=== PATIENT | female | born 1980 | race Caucasian/White ===

== ENCOUNTER → 2019-04-30 09:03 | Outpatient (BNVA) | payer MEDICARE, MEDICAID, SELFPAY | PROVIDERS: Family Provider Registered Nurse; PCP Registered Nurse; Visit Provider Social Worker | DX: F41.1 Generalized anxiety disorder (principal); F33.1 Major depressive disorder, recurrent, moderate; F43.12 Post-traumatic stress disorder, chronic | CPT/HCPCS: 90834 ==

== ENCOUNTER → 2019-05-17 09:32 | Outpatient (BNVA) | payer MEDICARE, MEDICAID, SELFPAY | PROVIDERS: Family Provider Registered Nurse; PCP Internal Medicine Rheumatology; Visit Provider Nurse Practitioner | DX: F41.1 Generalized anxiety disorder (principal); F33.1 Major depressive disorder, recurrent, moderate; G47.00 Insomnia, unspecified | CPT/HCPCS: 99213 ==

== ENCOUNTER → 2019-05-24 12:24 | Outpatient (BNVA) | payer MEDICARE, MEDICAID, SELFPAY | PROVIDERS: Family Provider Registered Nurse; PCP Registered Nurse; Referring Provider Registered Nurse; Visit Provider Internal Medicine Rheumatology | DX: M79.7 Fibromyalgia (principal); Z79.899 Other long term (current) drug therapy; F33.1 Major depressive disorder, recurrent, moderate; F41.1 Generalized anxiety disorder | CPT/HCPCS: 36415; 80076; 82306; 82565; 85025; 86900; 99214 ==

== ENCOUNTER → 2019-05-24 13:59 | Outpatient (BNVA) | payer MEDICARE, MEDICAID, SELFPAY | PROVIDERS: Family Provider Registered Nurse; PCP Registered Nurse; Referring Provider Registered Nurse; Visit Provider Internal Medicine Rheumatology | DX: Z79.899 Other long term (current) drug therapy (principal); M79.7 Fibromyalgia; F33.1 Major depressive disorder, recurrent, moderate; F41.1 Generalized anxiety disorder | CPT/HCPCS: 85025 ==

== ENCOUNTER → 2019-05-30 08:56 | Outpatient (BNVA) | payer MEDICARE, MEDICAID, SELFPAY | PROVIDERS: Family Provider Registered Nurse; PCP Registered Nurse; Visit Provider Social Worker | DX: F41.1 Generalized anxiety disorder (principal); F33.1 Major depressive disorder, recurrent, moderate; F43.12 Post-traumatic stress disorder, chronic | CPT/HCPCS: 90834 ==

== ENCOUNTER → 2019-06-27 09:07 | Outpatient (BNVA) | payer MEDICARE, MEDICAID, SELFPAY | PROVIDERS: Family Provider Registered Nurse; PCP Registered Nurse; Visit Provider Social Worker | DX: F41.1 Generalized anxiety disorder (principal); F33.1 Major depressive disorder, recurrent, moderate; F43.12 Post-traumatic stress disorder, chronic | CPT/HCPCS: 90834 ==

== ENCOUNTER → 2019-07-25 13:48 | Outpatient (BNVA) | payer MEDICARE, MEDICAID, SELFPAY | PROVIDERS: Family Provider Registered Nurse; PCP Registered Nurse; Visit Provider Social Worker | DX: F33.1 Major depressive disorder, recurrent, moderate (principal); F41.1 Generalized anxiety disorder; F43.12 Post-traumatic stress disorder, chronic | CPT/HCPCS: 90834 ==

== ENCOUNTER → 2019-08-15 07:48 | Outpatient (BNVA) | payer MEDICARE, MEDICAID, SELFPAY | PROVIDERS: Family Provider Registered Nurse; PCP Registered Nurse; Visit Provider Nurse Practitioner | DX: F41.1 Generalized anxiety disorder (principal); F33.1 Major depressive disorder, recurrent, moderate; G47.00 Insomnia, unspecified | CPT/HCPCS: 99213 ==

== ENCOUNTER → 2019-08-22 09:10 | Outpatient (BNVA) | payer MEDICARE, MEDICAID, SELFPAY | PROVIDERS: Family Provider Registered Nurse; Visit Provider Social Worker | DX: F33.1 Major depressive disorder, recurrent, moderate (principal); F41.1 Generalized anxiety disorder | CPT/HCPCS: 90834 ==

== ENCOUNTER → 2019-09-26 08:38 | Outpatient (BNVA) | payer MEDICARE, MEDICAID, SELFPAY | PROVIDERS: Family Provider Registered Nurse; Visit Provider Social Worker | DX: F41.1 Generalized anxiety disorder (principal); F33.1 Major depressive disorder, recurrent, moderate | CPT/HCPCS: 90832 ==

== ENCOUNTER → 2019-10-05 09:17 | Outpatient (BNVA) | payer MEDICARE, MEDICAID, SELFPAY | PROVIDERS: Family Provider Registered Nurse; Visit Provider Nurse Practitioner Family | DX: K59.00 Constipation, unspecified (principal); W57.XXXA Bitten or stung by nonvenomous insect and other nonvenomous arthropods, initial encounter; R19.5 Other fecal abnormalities; L03.116 Cellulitis of left lower limb | CPT/HCPCS: 82270; 86618; 86666; 86757 ==

== ENCOUNTER → 2019-10-08 09:11 | Outpatient (BNVA) | payer MEDICARE, MEDICAID, SELFPAY | PROVIDERS: Family Provider Registered Nurse; Visit Provider Registered Nurse | DX: N94.9 Unspecified condition associated with female genital organs and menstrual cycle (principal); B37.3 Candidiasis of vulva and vagina; W19.XXXA Unspecified fall, initial encounter | CPT/HCPCS: 81000 ==

== ENCOUNTER 2019-11-07 07:37 | Day surgery (SDC) | payer MEDICARE, MEDICAID, SELFPAY ==
[2019-11-05 12:48] VITALS: BMI 46.1
[2019-11-07 08:05] VITALS: BP 120/87; PULSE 54; RESP 18; TEMP 36.3; O2SAT 97
[2019-11-07 08:12] LABS: OR HCG Qualitative Urine Negative (Negative)
--- NOTE | 2019-11-07 08:23 | ANES.PREANE2 ---
Pre-Anesthetic Assessment Pre-Anesthetic Assessment: Height/Weight: Height 1.68 m Weight 129.727 kg Temp Pulse Resp BP Pulse Ox 97.4 F L 54 L 18 120/87 97 11/07/19 08:05 11/07/19 08:05 11/07/19 08:05 11/07/19 08:05 11/07/19 08:05 Preop Diagnosis: Chronic GERD and change in bowel habits Proposed Procedure: Operation Date: 11/07/19 09:15 Proposed Procedures s EGD/colon 94079 [id number] K21.9 R19.4(Not Applicable) - Db Bowser MD p Colonoscopy 07324 R19.4(Not Applicable) - Db Bowser MD Familial anesthetic complications: None Last intake: Intake Last Liquid Date 11/06/19 Last Liquid Time 21:00 Last Solid Date 11/05/19 Social: Social History: No alcohol and No tobacco Comment: second hand smoke from her apartment Exam: Pre-Anes Outpt Exam: alert, oriented x 3, clear to auscultation bilaterally and regular rate & rhythm Airway: Cervical ROM: WNL MP: 2 Dentition: Other (missing) : : None reported Hepatic: Hepatic: None reported GI: GI: GERD Metabolic: Metabolic: Morbid obesity and Thyroid Musc/skel: Musc/skel: Fibromyalgia Anesthetic Plan: ASA status: 2 Anesthesia: MAC Risk of > 500 ml blood loss (7ml/kg in children): No PFSH Anesthesia PFSH: Medical History (Updated 10/25/19 @ 11:45 by Db Bowser MD) Enrolled in chronic care management Fibromyalgia Generalized anxiety disorder GERD (gastroesophageal reflux disease) Major depressive disorder, recurrent, moderate Osteoarthritis 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 Raynauds disease Surgical History History of colonoscopy History of esophagogastroduodenoscopy (EGD) Family History Mother Arthritis Anemia CHF (congestive heart failure) Diabetes Grandmother CHF (congestive heart failure) ASCVD (arteriosclerotic cardiovascular disease) Diabetes Father CHF (congestive heart failure) Grandfather Diabetes Brother Diabetes Other Hypertension Lupus Rheumatoid arthritis Denies family history of Lupus anticoagulant inhibitor syndrome Anesthesia complication Bleeding disorder Social History Smoking and tobacco status: never smoked Second hand smoke exposure: Yes Data Anesthesia Other Labs: Laboratory Results - last 48 hr 11/07/19 08:11 Urine HCG, Qual Negative Cardiac Studies: No Data to Display
[2019-11-07] MEDS: sodium chloride 0.9% 1,000 ML 30 ML IV (08:45)
--- NOTE | 2019-11-07 09:12 | W.PM.OPSUD ---
Surgery/Procedure H&P Update DATE OF PROCEDURE: November 07, 2019 DATE H&P PERFORMED: 10/25/19 H&P UPDATE INFORMATION: I have reviewed H&P completed within last 30 days, I have examined patient prior to procedure and No changes to prior documentation PREOP DIAGNOSIS: Chronic GERD and change in bowel habits PRIMARY INDICATION FOR PROCEDURE: The same PLANNED PROCEDURE: Operation Date: 11/07/19 09:15 Proposed Procedures s EGD/colon 83489 48039 K21.9 R19.4(Not Applicable) - Db Bowser MD p Colonoscopy 76848 R19.4(Not Applicable) - Db Bowser MD
[2019-11-07 09:50] VITALS: BP 102/80; PULSE 58; RESP 18; TEMP 36.3; O2SAT 97
[2019-11-07 10:05] VITALS: BP 106/72; PULSE 57; RESP 18; O2SAT 95
[2019-11-08 05:52] LABS: H. Pylori / CLO Test Negative
== END 2019-11-07 10:23 | disposition home or self-care (01) ==
PROVIDERS: PCP Registered Nurse; Visit Provider Surgery
PROC: 0DJ08ZZ Inspection of Upper Intestinal Tract, Via Natural or Artificial Opening Endoscopic (ICD-10-PCS; CPT 43235; principal; 2019-11-07 09:15)
PROC: 0DJD8ZZ Inspection of Lower Intestinal Tract, Via Natural or Artificial Opening Endoscopic (ICD-10-PCS; CPT 45378; 2019-11-07 09:15)
DX: R19.4 Change in bowel habit (principal); K21.9 Gastro-esophageal reflux disease without esophagitis; K29.70 Gastritis, unspecified, without bleeding; E66.01 Morbid (severe) obesity due to excess calories; Z68.42 Body mass index [BMI] 45.0-49.9, adult; M79.7 Fibromyalgia; M19.90 Unspecified osteoarthritis, unspecified site
CPT/HCPCS: 12345; 43239; 45378; 81025; 84703; 87077; 88305; J2704; J7030

== ENCOUNTER → 2019-11-09 07:58 | Outpatient (BNVA) | payer MEDICARE, MEDICAID, SELFPAY | PROVIDERS: PCP Registered Nurse; Visit Provider Nurse Practitioner | DX: F41.1 Generalized anxiety disorder (principal); F33.1 Major depressive disorder, recurrent, moderate; G47.00 Insomnia, unspecified | CPT/HCPCS: 99213 ==

== ENCOUNTER 2019-11-14 17:03 | Outpatient (CLI) | payer MEDICARE, MEDICAID, SELFPAY ==
[2019-11-14 17:41] LABS: Amphetamines Screen Urine Negative (Negative); Barbiturates Screen Urine Negative (Negative); Benzodiazepines Screen Urine Positive (Negative); Cocaine Screen Urine Negative (Negative); Opiate Screen Urine Positive (Negative); PCP Screen Urine Negative (Negative); THC Screen Urine Negative (Negative)
== END 2019-11-14 17:04 | disposition home or self-care (01) ==
LOC: LAB 17:05
PROVIDERS: PCP Registered Nurse; Visit Provider Nurse Practitioner Family
DX: R82.90 Unspecified abnormal findings in urine; R82.5 Elevated urine levels of drugs, medicaments and biological substances; F41.1 Generalized anxiety disorder; F33.1 Major depressive disorder, recurrent, moderate; H81.13 Benign paroxysmal vertigo, bilateral
CPT/HCPCS: 80061; 80306; 83036

== ENCOUNTER → 2019-11-23 11:34 | Outpatient (BNVA) | payer MEDICARE, MEDICAID, SELFPAY ==
[2019-11-23 11:30] VITALS: BP 114/59; BMI 47.5
== END ==
PROVIDERS: PCP Registered Nurse; Visit Provider Registered Nurse
DX: H81.13 Benign paroxysmal vertigo, bilateral (principal)
CPT/HCPCS: 80053; 80307

== ENCOUNTER 2019-12-04 09:44 | Outpatient (RCR) | payer MEDICARE, MEDICAID, SELFPAY ==
[2019-11-23 11:30] VITALS: BP 114/59; BMI 47.5
== END 2019-12-17 23:59 | disposition home or self-care (01) ==
LOC: SPT 09:44
PROVIDERS: PCP Registered Nurse; Referring Provider Registered Nurse; Visit Provider Registered Nurse
DX: H81.13 Benign paroxysmal vertigo, bilateral (principal)
CPT/HCPCS: 97162

== ENCOUNTER 2019-12-04 09:46 | Outpatient (CLI) | payer MEDICARE, MEDICAID, SELFPAY ==
[2019-11-23 11:30] VITALS: BP 114/59; BMI 47.5
--- NOTE | 2019-12-04 13:30 | MM_ITS ---
WS: [id number] SCREENING DIGITAL MAMMOGRAM WITH CAD HISTORY: SCREEN FOR BREAST CANCER COMPARISON: None available. Bilateral CC and MLO views submitted. Computer aided detection analyzed. Breast composition: There are scattered areas of fibroglandular density. No suspicious masses, microc alcifications or architectural distortion. MM/[place] [id number] IMPRESSION: BI-RADS: 1-Negative FOLLOW UP: 1 Year Follow-up
== END 2019-12-04 09:47 | disposition home or self-care (01) ==
LOC: RADSHAW 09:49
PROVIDERS: PCP Registered Nurse; Visit Provider Surgery
DX: Z12.31 Encounter for screening mammogram for malignant neoplasm of breast (principal)
CPT/HCPCS: 77067

== ENCOUNTER → 2019-12-20 14:52 | Outpatient (BNVA) | payer OTHER, SELFPAY ==
[2019-11-23 11:30] VITALS: BP 114/59; BMI 47.5
== END ==
PROVIDERS: PCP Registered Nurse; Visit Provider Registered Nurse
DX: R10.84 Generalized abdominal pain (principal); E66.01 Morbid (severe) obesity due to excess calories; Z68.41 Body mass index [BMI] 40.0-44.9, adult
CPT/HCPCS: 81000

== ENCOUNTER → 2019-12-31 09:24 | Outpatient (BNVA) | payer MEDICARE, MEDICAID, SELFPAY ==
[2019-11-23 11:30] VITALS: BP 114/59; BMI 47.5
== END ==
PROVIDERS: PCP Registered Nurse; Visit Provider Registered Nurse
DX: E28.2 Polycystic ovarian syndrome (principal)
CPT/HCPCS: 83001; 84146; 84402; 84443

== ENCOUNTER → 2020-01-16 14:17 | Outpatient (BNVA) | payer MEDICARE, MEDICAID, SELFPAY ==
[2020-01-16 14:24] VITALS: BP 114/59; BMI 47.5
== END ==
PROVIDERS: PCP Registered Nurse; Visit Provider Nurse Practitioner Women's Health
DX: E28.2 Polycystic ovarian syndrome (principal); Z12.4 Encounter for screening for malignant neoplasm of cervix
CPT/HCPCS: 88175

== ENCOUNTER → 2020-01-23 14:27 | Outpatient (BNVA) | payer MEDICARE, MEDICAID, SELFPAY ==
[2020-01-18 15:02] VITALS: BP 114/59; BMI 47.5
== END ==
PROVIDERS: PCP Registered Nurse; Visit Provider Nurse Practitioner Women's Health
DX: E28.2 Polycystic ovarian syndrome (principal)
CPT/HCPCS: 76830

== ENCOUNTER → 2020-02-04 07:50 | Outpatient (BNVA) | payer MEDICARE, MEDICAID, SELFPAY ==
[2020-01-18 15:02] VITALS: BP 114/59; BMI 47.5
== END ==
PROVIDERS: PCP Registered Nurse; Visit Provider Nurse Practitioner
DX: F41.1 Generalized anxiety disorder (principal); F33.1 Major depressive disorder, recurrent, moderate
CPT/HCPCS: 99213

== ENCOUNTER → 2020-03-14 11:21 | Outpatient (BNVA) | payer OTHER, MEDICARE, MEDICAID, SELFPAY ==
[2020-03-07 12:25] VITALS: BP 114/59; BMI 47.5
== END ==
PROVIDERS: PCP Registered Nurse; Visit Provider Obstetrics & Gynecology
DX: Z01.812 Encounter for preprocedural laboratory examination (principal); Z20.828 Contact with and (suspected) exposure to other viral communicable diseases
CPT/HCPCS: 87635

== ENCOUNTER 2020-03-19 09:21 | Day surgery (SDC) | payer MEDICARE, MEDICAID, SELFPAY ==
[2020-03-07 12:25] VITALS: BP 114/59; BMI 47.5
[2020-03-17 10:24] VITALS: BMI 49.1
[2020-03-17 10:49] LABS: Add Urine Microscopic? NO
[2020-03-17 11:10] LABS: Basophils % 0.5 %; Eosinophils # 0.1 10^3/uL (0.0-0.8); Eosinophils % 1.3 %; Hematocrit 40.4 % (37.0-47.0); Hemoglobin 13.2 g/dL (11.5-15.3); Lymphocytes # 1.9 10^3/uL (0.8-4.8); Lymphocytes % 22.7 %; Mean Corpuscular HGB Conc 32.7 g/dL (30.0-36.0); Mean Corpuscular Hemoglobin 30.8 pg (28.0-34.0); Mean Corpuscular Volume 94.2 fL (81-99); Monocytes # 0.4 10^3/uL (0.2-0.9); Neutrophils # 5.77 10^3/uL (1.8-7.7); Neutrophils % 69.4 %; Nucleated Red Blood Cells % 0 %; Platelet Count 291 10^3/cmm (130-400); Red Blood Count 4.29 10^6/uL (4.1-5.3); Red Cell Distribution Width 13.7 % (12.1-15.1); White Blood Count 8.3 10^3/uL (4.0-10.0)
[2020-03-17 11:11] LABS: Alanine Aminotransferase 20 U/L (0-33); Albumin Level 4.2 g/dL (3.5-5.2); Alkaline Phosphatase 86 IU/L (35-105); Anion Gap 15.5 (5-19); Aspartate Amino Transferase 16 U/L (0-32); Blood Urea Nitrogen 11 mg/dL (6-20); Carbon Dioxide 29 mmol/L (22-29); Chloride 100 mmol/L (98-107); Globulin 2.8 g/dL (1.3-4.6); Glucose 105 mg/dL (65-115); Osmolality Calculated 290 mOsm/kg (285-295); Potassium 4.5 mmol/L (3.5-5.1); Sodium 140 mmol/L (136-145); Total Bilirubin 0.3 mg/dL (0.15-1.2)
[2020-03-17 11:24] LABS: Bilirubin Urine Neg (Negative); Blood Urine Neg (Negative); Glucose Urine UA Norm (Normal); Ketones Urine Negative (Negative); Leukocyte Esterase Urine Negative (Negative); Nitrate Urine Negative (Negative); Protein Urine Neg (Negative); Urine Appearance Clear (CLEAR); Urine Color Straw (Yellow); Urobilinogen Urine Norm (Negative); pH Urine 7 (5-7)
--- NOTE | 2020-03-17 12:18 | P.ANESASSM_ITS ---
Pre-Anesthetic Assessment Pre-Anesthetic Assessment: Height/Weight: Height 1.65 m Weight 133.81 kg Preop Diagnosis: Chronic pelvic pain Proposed Procedure: Operation Date: 03/19/20 11:10 Proposed Procedures p Laparoscopy Diagnostic 58587 R10.2(Not Applicable) - Dimas Calderon MD Was Beta Hector taken within 24 hours: N/A Social: Social History: No alcohol and No tobacco Exam: Pre-Anes Outpt Exam: alert, oriented x 3, clear to auscultation bilaterally and regular rate & rhythm Airway: Submandibular: WNL Cervical ROM: WNL MP: 2 Dentition: Full Pulmonary: Pulmonary: None reported CV/HEM: CV/HEM: None reported : : None reported Hepatic: Hepatic: None reported GI: GI: GERD Comments: IBS Metabolic: Metabolic: DM and Morbid obesity Musc/skel: Musc/skel: Fibromyalgia and Lower Back Pain Neuropsych: Neuropsych: Anxiety and Depression Anesthetic Plan: ASA status: 3 Risk of > 500 ml blood loss (7ml/kg in children): No PFSH Anesthesia PFSH: Medical History (Updated 03/17/20 @ 08:44 by Rosario Camacho RN) Enrolled in chronic care management Fibromyalgia Generalized anxiety disorder GERD (gastroesophageal reflux disease) Hypertension Hypothyroid IBS (irritable bowel syndrome) Major depressive disorder, recurrent, moderate Osteoarthritis 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 PCOS (polycystic ovarian syndrome) Raynauds disease Seasonal allergies Surgical History History of colonoscopy History of esophagogastroduodenoscopy (EGD) Family History Mother Diabetes Heart disease Uterine cancer, Onset Age: 60 Grandmother Diabetes Heart disease Father Heart disease Hypertension Grandfather Diabetes Maternal Heart disease Maternal Brother Diabetes Family/Other Stroke Maternal Great Grandmother Denies family history of Colon cancer Ovarian cancer Breast cancer Bleeding disorder Thyroid disease Social History Additional social history: - Tobacco use: Never Alcohol use: Never Drug use: Never Female Reproductive History: Date of last menstrual period: 11/05/19 Data Anesthesia CBC & Chem 7: 03/17/20 10:18 03/17/20 10:18 Other Labs: Laboratory Results - last 48 hr 03/17/20 03/17/20 03/17/20 10:15 10:18 10:18 WBC 8.3 RBC 4.29 Hgb 13.2 Hct 40.4 MCV 94.2 MCH 30.8 MCHC 32.7 RDW 13.7 Plt Count 291 MPV 10.0 Neut % (Auto) 69.4 Lymph % (Auto) 22.7 Casey % (Auto) 5.0 Eos % (Auto) 1.3 Baso % (Auto) 0.5 Neut # (Auto) 5.77 Lymph # (Auto) 1.9 Casey # (Auto) 0.4 Eos # (Auto) 0.1 Baso # (Auto) 0.0 Nucleated RBC % (auto) 0 Nucleated RBCs # 0.0 Sodium 140 Potassium 4.5 Chloride 100 Carbon Dioxide 29 Anion Gap 15.5 BUN 11 Creatinine 0.9 GFR Calculation 69.0 L Glucose 105 Calculated Osmolality 290 Calcium 9.0 Total Bilirubin 0.3 AST 16 ALT 20 Alkaline Phosphatase 86 Total Protein 7.0 Albumin 4.2 Globulin 2.8 Urine Color Straw Urine Appearance Clear Urine pH 7 Ur Specific Shirland 1.010 Urine Protein Neg Urine Glucose (UA) Norm Urine Ketones Negative Urine Blood Neg Urine Nitrate Negative Urine Bilirubin Neg Urine Urobilinogen Norm Ur Leukocyte Esterase Negative Blood Type Rho(D) Type Antibody Screen 03/17/20 10:18 WBC RBC Hgb Hct MCV MCH MCHC RDW Plt Count MPV Neut % (Auto) Lymph % (Auto) Casey % (Auto) Eos % (Auto) Baso % (Auto) Neut # (Auto) Lymph # (Auto) Casey # (Auto) Eos # (Auto) Baso # (Auto) Nucleated RBC % (auto) Nucleated RBCs # Sodium Potassium Chloride Carbon Dioxide Anion Gap BUN Creatinine GFR Calculation Glucose Calculated Osmolality Calcium Total Bilirubin AST ALT Alkaline Phosphatase Total Protein Albumin Globulin Urine Color Urine Appearance Urine pH Ur Specific Shirland Urine Protein Urine Glucose (UA) Urine Ketones Urine Blood Urine Nitrate Urine Bilirubin Urine Urobilinogen Ur Leukocyte Esterase Blood Type A Positive Rho(D) Type Positive Antibody Screen Negative Cardiac Studies: No Data to Display
[2020-03-19] VITALS (8 sets, daily range): BP systolic 98–132; BP diastolic 65–88; PULSE 71–102; RESP 16–19; TEMP 36.2–36.4; O2SAT 90–99
[2020-03-19 10:23] LABS: OR HCG Qualitative Urine Negative (Negative)
[2020-03-19] MEDS: sodium chloride 0.9% 1,000 ML 30 ML IV (10:31)
[2020-03-19] MEDS: scopolamine 1.5 Patch 1 PATCH TRANSDERMA (10:34)
[2020-03-19] MEDS: sodium chloride 0.9% 500 ML IV (11:05)
--- NOTE | 2020-03-19 11:35 | W.PM.OPSUD ---
Surgery/Procedure H&P Update DATE OF PROCEDURE: March 19, 2020 DATE H&P PERFORMED: 10/25/19 H&P UPDATE INFORMATION: I have reviewed H&P completed within last 30 days, I have examined patient prior to procedure and No changes to prior documentation PREOP DIAGNOSIS: Chronic pelvic pain PLANNED PROCEDURE: Operation Date: 03/19/20 10:55 Proposed Procedures p Laparoscopy Diagnostic 82268 R10.2(Not Applicable) - Dimas Calderon MD
--- NOTE | 2020-03-19 11:59 | SUR.OPER ---
NS 500ml bolus infused.
--- NOTE | 2020-03-19 12:46 | P.OP_ITS ---
Operative Report Date of procedure: March 19, 2020 Pre-op Diagnosis: Chronic pelvic pain Post-op diagnosis: same Procedure Done: Diagnostic laparoscopy. Right ovarian cyst aspiration/drained. Specimens removed/disposition: Right ovarian cyst fluid Surgeon: Dimas Calderon MD Anesthesia: General Estimated blood loss (mL): 5 Urine output (mL): 200 Condition: stable Disposition: PACU Brief History: 39-year-old female G0, P0 with history of chronic pelvic Procedure: DESCRIPTION OF PROCEDURE: After informed consent, the patient was taken to the operating room where general anesthesia was administered. The patient was examined under anesthesia and found to have a normal uterus with normal adnexa. She was placed in the dorsal lithotomy position and prepped and draped in sterile fashion. Pre- Procedure Time-Out verifying the correct patient identity, correct procedure verified with consent, correct site and side, correct patient position, availability of correct implants and any special equipment or requirements was performed and acknowledge by the OR team. A weighted speculum was placed in the vagina, and the anterior lip of cervix was grasped with the single toothed tenaculum. A uterine manipulator was advanced into the endocervical. Tenaculum was removed after uterine manipulator was secured. The speculum was removed from the vagina. An intraumbilical incision was made with a scalpel. While tenting up on the abdomen, a Verres needle with sleeve was admitted into the intra-abdominal cavity. A saline drop test was performed and noted to be within normal limits. Pneumoperitoneum was attained with 4 liters of carbon dioxide. The Verres needle was removed. A 5 mm trocar and sleeve were admitted into the abdomen and laparoscopic confirmation of location was achieved, A second incision was made 3 cm above the symphysis pubis, and a 5 mm trocar and sleeve were admitted into the abdomen under direct, laparoscopic visualization without complication. A survey revealed normal abdominal anatomy and pelvic survey shows normal uterus, left and right adnexa. A 5 mm blunt probe was advanced through the second trocar sleeve, and light manipulation of ovaries and uterus to assess the posterior aspects was performed. A simple 2-3 cm cyst in the right ovary noted and drained. The fluid was send to pathology. Carbon dioxide was allowed to escape from the abdomen. The instruments were removed, and skin cover with a bandage. The instruments were removed from the vagina, and excellent hemostasis was noted. The patient tolerated the procedure well, and sponge, lap and needle count were correct times two. The patient taken to the recovery room in good condition.
--- NOTE | 2020-03-19 13:02 | SUR.PHASEI ---
PT SLEEPS WITH GOOD RESP NOTED IV PATENT ABD SOFT , VSS
--- NOTE | 2020-03-19 13:13 | SUR.PHASEI ---
PT AWAKES EASILY FOLLOWS COMMANDS, PT ON RA TRIAL, SATS DOWN TO 87 PT ENCOURAGED TO COUGH AND DEEP BREATH, PT COUGHS STRONGLY AND NON PRODUCTIVE, VSS PT ON 3LNC SATS MAINTAINED AT 97% PT AWAKES EASILY TAKING FEW ICE CHIPS ABD LARGE SOFT WITH 2 SITES WITH XOFIN.
== END 2020-03-19 15:00 | disposition home or self-care (01) ==
PROVIDERS: Anesthesiology; PCP Registered Nurse; Visit Provider Obstetrics & Gynecology
PROC: (CPT 49320; principal; 2020-03-19 10:55)
DX: R10.2 Pelvic and perineal pain (principal); K21.9 Gastro-esophageal reflux disease without esophagitis; E11.9 Type 2 diabetes mellitus without complications; E66.01 Morbid (severe) obesity due to excess calories; Z68.42 Body mass index [BMI] 45.0-49.9, adult; M79.7 Fibromyalgia; F41.9 Anxiety disorder, unspecified; E03.9 Hypothyroidism, unspecified; I10 Essential (primary) hypertension; M19.90 Unspecified osteoarthritis, unspecified site; E28.2 Polycystic ovarian syndrome
CPT/HCPCS: 49322; 12345; 80053; 81003; 81025; 84703; 85025; 86850; 86900; 88112; 88305; J0690; J1100; J2405; J2704; J3010; J3490; J7030; J7040

== ENCOUNTER 2020-03-20 22:27 | Emergency (ER) | payer MEDICARE, MEDICAID, SELFPAY ==
[2020-03-07 12:25] VITALS: BP 114/59; BMI 47.5
[2020-03-20 22:30] VITALS: BP 101/79; PULSE 72; RESP 14; TEMP 36.9; O2SAT 96; BMI 48.2
--- NOTE | 2020-03-20 22:45 | XR_ITS ---
WS: [id number] KUB, 03/20/2020 Clinical Data: upper abdominal pain Comparison: None. Findings: No abnormal intraabdominal masses or calcifications are seen. There is no dilatated small bowel or ev idence of obstruction. There is a large amount of fecal material throughout the colon. There is a radiopaque clip to the rig ht of the L4 vertebral body which could be from surgery. XR/XR KUB portable [id number] Impression: Large amount of fecal material in the colon.
--- NOTE | 2020-03-20 22:45 | W.ED.ABDPA2 ---
HPI - Abdominal Pain General: Chief Complaint: Abdominal Pain Stated Complaint: abd pain Time Seen by Provider: 03/20/20 22:40 History of Present Illness: HPI narrative: Arrives via ambulance with complaint abdominal pain. Patient did not get her pain medicine picked up the pharmacy and she has been hurting since she had a laparoscopic done she thought maybe one of her incisions was popping open. She is no acute pain. Said bowels are working fine. Denies fever chills or other problems MD elicited complaint: abdominal pain Pertinent past history: other (Cyst reduction laparoscopic yesterday Dr. Calderon) Onset (ago): day(s) Pain Consistency: constant Location: LUQ and RUQ Severity: mild Quality: aching Radiation: none Migration to: no migration Exacerbating factors: nothing Relieving factors: nothing Context: recent surgery/procedure Associated Symptoms: Reports no associated symptoms; Denies chills, fever(s), nausea and vomiting Related Data: Date of Last Menstrual Period: 11/05/19 Review of Systems Const: Denies: fever(s), chills or body aches Eyes: Denies: change in vision or blurry vision ENMT: Denies: throat pain or nasal congestion Card: Denies: chest pain or dyspnea on exertion Resp: Denies: dyspnea, productive cough or non-productive cough GI: Reports: abdominal pain; Denies: nausea or vomiting Musc: Denies: extremity pain Skin/Breast: Denies: rash Neuro: Denies: headache(s) Psych: Denies: anxiety or depression Brenden/Lymph: Denies: easy bruising PFS ED PFSH: Medical History (Updated 03/20/20 @ 23:47 by MILLI Guzman) Enrolled in chronic care management Fibromyalgia Generalized anxiety disorder GERD (gastroesophageal reflux disease) Hypertension Hypothyroid IBS (irritable bowel syndrome) Major depressive disorder, recurrent, moderate Osteoarthritis Other long-term (current) drug therapy PCOS (polycystic ovarian syndrome) Raynauds disease Seasonal allergies Surgical History History of colonoscopy History of esophagogastroduodenoscopy (EGD) Family History Mother Diabetes Heart disease Uterine cancer, Onset Age: 60 Grandmother Diabetes Heart disease Father Heart disease Hypertension Grandfather Diabetes Maternal Heart disease Maternal Brother Diabetes Family/Other Stroke Maternal Great Grandmother Denies family history of Colon cancer Ovarian cancer Breast cancer Bleeding disorder Thyroid disease Social History Additional social history: - Tobacco use: Never Alcohol use: Never Drug use: Never Female Reproductive History: Date of last menstrual period: 11/05/19 Physical Exam Const: COMMON NORMALS: no acute distress, average body habitus and patient oriented x3 HENMT: COMMON NORMALS: normocephalic HEAD & SCALP: normal to inspection and normocephalic FACE & SINUS: normal facial exam Eye: COMMON NORMALS: conjunctivae normal GENERAL EYE: appearance normal, both eyes and all related structures CONJUNCTIVA: Yes conjunctivae normal Neck/C-Spine: COMMON NORMALS: no JVD Chest: COMMONS NORMALS: normal inspection of the chest Resp: COMMON NORMALS: normal respiratory effort and clear to auscultation bilaterally AUSCULTATION: clear to auscultation bilaterally Cardio: COMMON NORMALS: no JVD, regular rate and regular rhythm RATE: regular rate RHYTHM: regular rhythm GI: COMMON NORMALS: Normal to inspection, nondistended, normoactive bowel sounds present PALPATION: Yes Tenderness to palpation present (GI) Details: LUQ and RUQ Extremity: COMMON NORMALS: normal to inspection and full ROM Neuro: COMMON NORMALS: patient oriented x3 Course Vital Signs: Vital signs: Vital Signs Temperature 98.4 F 03/21/20 00:03 Pulse Rate 96 03/21/20 00:03 Respiratory Rate 18 03/21/20 00:03 Blood Pressure 124/74 03/21/20 00:03 Pulse Oximetry 96 03/21/20 00:03 MDM - Abdominal Pain MDM Narrative: Medical decision making narrative: Patient does not appear in any pain here. Patient does appear to have bowel gas consistent with air inflation that she had with the surgery yesterday. Labs are good patient encouraged to follow-up with Dr. Calderon and also take pain medicine she were prescribed Lab Data: Labs: Lab Results 03/20/20 03/20/20 Range/Units 22:40 22:40 WBC 9.5 (4.0-10.0) 10^3/ uL RBC 4.07 L (4.1-5.3) 10^6/u L Hgb 12.4 (11.5-15.3) g/dL Hct 36.4 L (37.0-47.0) % MCV 89.4 (81-99) fL MCH 30.5 (28.0-34.0) pg MCHC 34.1 (30.0-36.0) g/dL RDW 13.4 (12.1-15.1) % Plt Count 299 (130-400) 10^3/c mm MPV 10.1 (7.4-10.4) fL Neut % (Auto) 60.8 % Lymph % (Auto) 30.6 % Sunflower % (Auto) 6.5 % Eos % (Auto) 1.3 % Baso % (Auto) 0.4 % Neut # (Auto) 5.77 (1.8-7.7) 10^3/u L Lymph # (Auto) 2.9 (0.8-4.8) 10^3/u L Sunflower # (Auto) 0.6 (0.2-0.9) 10^3/u L Eos # (Auto) 0.1 (0.0-0.8) 10^3/u L Baso # (Auto) 0.0 (0.0-0.1) 10^3/u L Nucleated RBC % (a uto) 0 % Nucleated RBCs # 0.0 /100WBC Sodium 136 (136-145) mmol/L Potassium 3.8 (3.5-5.1) mmol/L Chloride 98 (98-107) mmol/L Carbon Dioxide 28 (22-29) mmol/L Anion Gap 13.8 (5-19) BUN 14 (6-20) mg/dL Creatinine 1.0 H (0.5-0.9) mg/dL GFR Calculation 61.1 L (90-130) mL/min Glucose 93 (65-115) mg/dL Calculated Osmolal ity 282 L (285-295) mOsm/k g Calcium 9.2 (8.5-10.5) mg/dL Total Bilirubin 0.4 (0.15-1.2) mg/dL AST 19 (0-32) U/L ALT 15 (0-33) U/L Alkaline Phosphata se 70 (35-105) IU/L Total Protein 6.8 (6.6-8.7) g/dL Albumin 4.1 (3.5-5.2) g/dL Globulin 2.7 (1.3-4.6) g/dL Lipase 35 (13-60) U/L Discharge Plan Discharge Patient Disposition: Home Clinical Impression: Abdominal pain Qualifiers: Abdominal location: generalized Qualified Code(s): R10.84 - Generalized abdominal pain Condition: Stable Prescriptions: New tramadol 50 mg tablet 50 mg PO TID PRN (Reason: pain) Qty: 10 RF: 0 No Action montelukast 10 mg tablet 10 mg PO DAILY RF: 0 levothyroxine 200 mcg capsule 200 mcg PO QDAY RF: 0 sumatriptan succinate 100 mg tablet 100 mg PO .COMPLEX Qty: 30 RF: 3 buspirone 15 mg tablet 15 mg PO TID Qty: 90 RF: 2 paroxetine HCl [Paxil] 20 mg tablet 20 mg PO .HS Qty: 30 RF: 2 trazodone 100 mg tablet 200 mg PO .at h.s Qty: 60 RF: 2 codeine sulfate 15 mg tablet 15 mg PO Q8H PRN (Reason: Pain) RF: 0 medroxyprogesterone 10 mg tablet 10 mg PO DAILY RF: 0 omeprazole 40 mg capsule,delayed release(DR/EC) 40 mg PO DAILY RF: 0 polyethylene glycol 3350 17 gram powder in packet 17 gm PO DAILY RF: 0 Hold Instructions: Doctor's Order spironolactone 25 mg tablet 50 mg PO DAILY RF: 0 baclofen 10 mg tablet 10 mg PO DAILY RF: 0 levocetirizine 5 mg tablet 5 mg PO DAILY RF: 0 Arnuity Ellipta 50 mcg/actuation blister with device 50 INHALATION RF: 0 hydrocortisone [Cortisone (hydrocortisone)] 1 % lotion 1 applic TOPICAL BID PRN (Reason: Rash) RF: 0 alprazolam 0.25 mg tablet 0.25 mg PO TID PRN (Reason: anxiety) Qty: 90 RF: 1 gabapentin 300 mg capsule See Rx Instructions .ROUTE .COMPLEX Qty: 90 RF: 0 hydroxyzine HCl 50 mg tablet 50 mg PO TID PRN (Reason: anxiety) Qty: 90 RF: 2 acetaminophen 325 mg capsule 325 mg PO Q4H PRN (Reason: fever or pain) Qty: 60 RF: 0 ibuprofen 800 mg tablet 800 mg PO TID PRN (Reason: pain) Qty: 60 RF: 0 Discharge Orders: Discharge ED (Routine); Ordered 03/20/20 Ordered By: Malcom Crook Referrals: Lili Gomes FNP [Primary Care Provider] - Discharge Diet: Advance as tolerated Discharge Activity: Resume usual activity Activity Restrictions/Additional Instructions: Follow-up Dr. Calderon as scheduled. Clear liquid diet next 24 hours. Try to move around much as possible. Take medicine as prescribed and pick medicine up at pharmacy and take that for your pain. Coding Level of Care Code ED Showcase Maker for Kianna Fwd Exam Comprehensive
[2020-03-20 23:07] VITALS: BP 147/45; PULSE 86; RESP 16; O2SAT 96
[2020-03-20 23:09] LABS: Basophils % 0.4 %; Eosinophils # 0.1 10^3/uL (0.0-0.8); Eosinophils % 1.3 %; Hematocrit 36.4 % (37.0-47.0); Hemoglobin 12.4 g/dL (11.5-15.3); Lymphocytes # 2.9 10^3/uL (0.8-4.8); Lymphocytes % 30.6 %; Mean Corpuscular HGB Conc 34.1 g/dL (30.0-36.0); Mean Corpuscular Hemoglobin 30.5 pg (28.0-34.0); Mean Corpuscular Volume 89.4 fL (81-99); Mean Platelet Volume 10.1 fL (7.4-10.4); Monocytes # 0.6 10^3/uL (0.2-0.9); Monocytes % 6.5 %; Neutrophils # 5.77 10^3/uL (1.8-7.7); Neutrophils % 60.8 %; Nucleated Red Blood Cells % 0 %; Platelet Count 299 10^3/cmm (130-400); Red Blood Count 4.07 10^6/uL (4.1-5.3); Red Cell Distribution Width 13.4 % (12.1-15.1); White Blood Count 9.5 10^3/uL (4.0-10.0)
[2020-03-20] MEDS: HYDROcodone-acetaminophen 7.5-325 mg Tablet 1 TAB PO (23:10)
[2020-03-20 23:24] LABS: Alanine Aminotransferase 15 U/L (0-33); Albumin Level 4.1 g/dL (3.5-5.2); Alkaline Phosphatase 70 IU/L (35-105); Anion Gap 13.8 (5-19); Aspartate Amino Transferase 19 U/L (0-32); Blood Urea Nitrogen 14 mg/dL (6-20); Calcium 9.2 mg/dL (8.5-10.5); Carbon Dioxide 28 mmol/L (22-29); Chloride 98 mmol/L (98-107); Globulin 2.7 g/dL (1.3-4.6); Glomerular Filtration Rate 61.1 mL/min (90-130); Glucose 93 mg/dL (65-115); Lipase 35 U/L (13-60); Osmolality Calculated 282 mOsm/kg (285-295); Potassium 3.8 mmol/L (3.5-5.1); Sodium 136 mmol/L (136-145); Total Bilirubin 0.4 mg/dL (0.15-1.2); Total Protein 6.8 g/dL (6.6-8.7)
[2020-03-21 00:03] VITALS: BP 124/74; PULSE 96; RESP 18; TEMP 36.9; O2SAT 96
== END 2020-03-20 23:58 | disposition home or self-care (01) ==
PROVIDERS: Emergency Provider Nurse Practitioner Family; PCP Registered Nurse
DX: R10.84 Generalized abdominal pain (principal); I10 Essential (primary) hypertension
CPT/HCPCS: 12345; 74018; 80053; 83690; 85025; 99283

== ENCOUNTER → 2020-03-28 08:54 | Outpatient (BNVA) | payer MEDICARE, MEDICAID, SELFPAY ==
[2020-03-07 12:25] VITALS: BP 114/59; BMI 47.5
== END ==
PROVIDERS: PCP Registered Nurse; Visit Provider Nurse Practitioner
DX: F41.1 Generalized anxiety disorder (principal); F33.1 Major depressive disorder, recurrent, moderate; G47.00 Insomnia, unspecified
CPT/HCPCS: 99213

== ENCOUNTER 2020-05-08 08:52 | Outpatient (CLI) | payer MEDICARE, MEDICAID, SELFPAY ==
[2020-04-14 16:27] VITALS: BP 114/59; BMI 47.5
--- NOTE | 2020-05-08 08:45 | US_ITS ---
WS: [id number] RIGHT UPPER QUADRANT ULTRASOUND HISTORY: K82.9 - Disease of gallbladder, unspecified COMPARISON: None available. Liver: 16.8 cm in length. Liver is mildly enlarged. Moderate low-attenuation attenuation throughout t he liver. No mass or bile duct dilatation. Gallbladder: Normally distended gallbladder with no stones or wall thickening. CBD: 0.4 cm Pancreas: Poorly visualized. Due to body habitus. Right kidney: 11.5 cm in length. Normal size and echogenicity. No hydronephrosis or mass. Aorta and IVC: Unremarkable abdominal aorta and IVC. No ascites. US/US abdomen limited [id number] IMPRESSION: 1. Normal gallbladder. 2. Mild hepatomegaly with changes of hepatic steatosis.
== END 2020-05-08 08:53 | disposition home or self-care (01) ==
LOC: RAD 08:59
PROVIDERS: PCP Registered Nurse; Visit Provider Obstetrics & Gynecology
DX: K82.9 Disease of gallbladder, unspecified (principal); R16.0 Hepatomegaly, not elsewhere classified; K76.0 Fatty (change of) liver, not elsewhere classified
CPT/HCPCS: 76705

== ENCOUNTER 2020-08-01 12:47 | Outpatient (CLI) | payer MEDICARE, MEDICAID, SELFPAY ==
[2020-04-14 16:27] VITALS: BP 114/59; BMI 47.5
--- NOTE | 2020-08-01 | CT_ITS ---
WS: [id number] CT scan of the abdomen and pelvis with Oral and IV contrast. Additional two-dimensional coronal and s agittal reconstruction was performed. 08/01/2020 Clinical Data: GENERALIZED ABD PAIN Comparison: None. DLP: 1384.[address] scans at [facility] use at least one of these dose optimization techniques: automat ed exposure control; mA and/or kV adjustment per patient size (includes targeted exams where dose is matched to clinical indication); or iterative reconstruction. Findings: The lower lungs show no nodules, masses or effusions. There is a moderate hiatal hernia. The liver, gallbladder, spleen, adrenal glands and pancreas are normal. The kidneys show equal bilateral contrast excretion with no cyst or masses. No hydronephrosis or kailyn l calculi are seen. The abdominal aorta is normal in size. No appendicitis or diverticulitis is seen. Oral contrast is in the stomach and small bowel and there is no bowel dilatation. No abscess, adenopathy, ascites, obstruction or free air is seen The bladder is unremarkable. No inguinal hernia is seen. There is a left adnexal mass measuring 5.5 c m with solid density. This could represent an ovarian mass or a soft tissue mass of unknown origin. The bones of the lower thorax, lumbar spine, pelvis, and hips show mild osteoarthritis of the lower t horacic and all lumbar vertebral bodies.. CT/CT abdomen pelvis w con* [id number] Impression: 1. Left adnexal mass, 5.5 cm, possibly of ovarian origin. 2. Recommend pelvic ultrasound.
[2020-08-01] MEDS: iohexol 300 mg/mL 50 mL Btl PO (13:50)
[2020-08-01] MEDS: iohexol 300 mg/mL 100 mL Btl IV (13:51)
== END 2020-08-01 12:48 | disposition home or self-care (01) ==
PROVIDERS: PCP Registered Nurse; Visit Provider Internal Medicine
DX: R10.9 Unspecified abdominal pain (principal)
CPT/HCPCS: 74177; Q9967

== ENCOUNTER 2020-09-24 06:37 | Outpatient (CLI) | payer MEDICARE, MEDICAID, SELFPAY ==
[2020-04-14 16:27] VITALS: BP 114/59; BMI 47.5
--- NOTE | 2020-09-24 07:15 | US_ITS ---
WS: [id number] TRANSABDOMINAL PELVIC AND TRANSVAGINAL PELVIC ULTRASOUND HISTORY: N94.89 - Other specified conditions associated with female organs. COMPARISON: CT 08/01/2020 Uterus: 8.0 cm x 5.7 cm x 4.2 cm. Anteverted uterus. Normal size with mild heterogeneity in the myome trium. No discrete fibroid is identified. Endometrium: 0.3 cm. Normal. Right ovary: 4.0 cm x 3.3 cm x 2.2 cm. Normal size ovary and normal vascularity. Dominant follicle me asures 2.1 x 1.4 x 1.7 cm. Left ovary: Not identified. Within the LEFT adnexa there is a large amount of shadowing. This corresponds to the mass seen on the prior CT. There is a poorly visualized mass with a large amount shadowing. Margins cannot be well vi sualized. Suspect this is probably ovarian in etiology. Mass was better seen on the CT. US/US pelvic with transvaginal IMPRESSION: 1. Solid mass in the LEFT adnexa seen on the prior CT of 08/01/2020 is not as w ell visualized by ultrasound due to body habitus. There is also a large amount shadowing from this mass. Recommend surgical consultation. Ovarian neoplasm nee ds to be considered. This could also be a dermoid. 2. Quality of examination is limited by body habitus. 3. Normal endometrium.
== END 2020-09-24 06:38 | disposition home or self-care (01) ==
PROVIDERS: PCP Registered Nurse; Visit Provider Registered Nurse
DX: N94.89 Other specified conditions associated with female genital organs and menstrual cycle (principal)
CPT/HCPCS: 76830; 76856

== ENCOUNTER → 2020-09-29 11:30 | Outpatient (BNVA) | payer MEDICARE, MEDICAID, SELFPAY ==
[2020-04-14 16:27] VITALS: BP 114/59; BMI 47.5
== END ==
PROVIDERS: PCP Registered Nurse; Visit Provider Nurse Practitioner
DX: F41.1 Generalized anxiety disorder (principal); F33.1 Major depressive disorder, recurrent, moderate; G47.00 Insomnia, unspecified
CPT/HCPCS: 99214

== ENCOUNTER 2020-10-31 08:07 | Outpatient (CLI) | payer MEDICARE, MEDICAID, SELFPAY ==
[2020-04-14 16:27] VITALS: BP 114/59; BMI 47.5
--- NOTE | 2020-10-31 08:00 | MR_ITS ---
WS: [id number] MRI PELVIS with and without CONTRAST. COMPARISON: 09/24/2020 and 08/01/2020 Multiplanar, multisequence imaging is performed with and without contrast. Mildly lobulated anterior uterus. No fibroid is identified. The endometrium is centered. No enhancing masses are identified. Uterus is very slightly deviated to the LEFT of midline. Small RIGHT ovary wi th a small follicle. Crenulated wall is probably a collapsing corpus luteum in the RIGHT ovary with a maximum diameter 1.9 cm. In the far lateral and high LEFT adnexa is a cystic mass with peripheral en hancement. No solid component. This corresponds to the mass seen on prior CT. Mass measures 2.4 x 2.5 cm with significant decrease in size since the prior study. No additional adnexal mass. There is no free fluid in the cul-de-sac. No adenopathy identified. MR/MR pelvis wo/w con [id number] IMPRESSION: 1. Mildly complex cyst in the LEFT adnexa. This corresponds to the mass seen o n the prior CT of 08/01/2020. Mildly complex cyst has significantly decreased in size now measuring 2.4 x 2.5 cm. No solid mass. 2. Midline uterus. 3. Negative RIGHT ovary.
[2020-10-31] MEDS: gadobenate dimeglumine 20 mL vial IV (09:35)
== END 2020-10-31 08:08 | disposition home or self-care (01) ==
LOC: RADSHAW 08:14
PROVIDERS: PCP Registered Nurse; Visit Provider Obstetrics & Gynecology
DX: N83.8 Other noninflammatory disorders of ovary, fallopian tube and broad ligament (principal)
CPT/HCPCS: 72197; A9577

== ENCOUNTER 2020-12-18 08:51 | Outpatient (CLI) | payer MEDICARE, MEDICAID, SELFPAY ==
[2020-11-25 10:20] VITALS: BP 114/59; BMI 47.5
--- NOTE | 2020-12-18 10:00 | NM_ITS ---
WS: [id number] NUCLEAR MEDICINE HIDA SCAN WITH GALLBLADDER EJECTION FRACTION HISTORY: R10.84 - Generalized abdominal pain COMPARISON: None available. TECHNIQUE: The patient was intravenously injected with 7.3 mCi of TC99m Mebrofenin. Immediate imaging over the right upper quadrant was followed by 5 minute image and additional images for a total of 60 minutes. Normal uptake of radiotracer throughout the liver. Activity identified in the gallbladder at 15 minutes and well distended by 60 minutes. Activity in the proximal small bowel was seen by 20 minutes. Good washout of the radiotracer from the liver by 60 minutes. The patient then drank 8 ounces of Ensure Plus. Ejection fraction at 60 minutes was 72%. Normal GB ej ection fraction is 35-75%. Post fatty meal symptoms: None. NM/NM hepatobiliary w phar* [id number] IMPRESSION: 1. Normal HIDA scan. 2. Normal gallbladder ejection fraction.
== END 2020-12-18 08:52 | disposition home or self-care (01) ==
LOC: NM 08:57
PROVIDERS: PCP Registered Nurse; Visit Provider Surgery
DX: R10.84 Generalized abdominal pain (principal)
CPT/HCPCS: 78227; A9537

== ENCOUNTER → 2021-02-09 07:58 | Outpatient (BNVA) | payer MEDICARE, MEDICAID, SELFPAY ==
[2020-12-29 14:35] VITALS: BP 114/59; BMI 47.5
== END ==
PROVIDERS: PCP Registered Nurse; Visit Provider Nurse Practitioner
DX: F41.1 Generalized anxiety disorder (principal); F33.1 Major depressive disorder, recurrent, moderate; G47.00 Insomnia, unspecified
CPT/HCPCS: 99214

== ENCOUNTER → 2021-02-17 08:08 | Outpatient (BNVA) | payer MEDICARE, MEDICAID, SELFPAY ==
[2020-12-29 14:35] VITALS: BP 114/59; BMI 47.5
== END ==
PROVIDERS: PCP Registered Nurse; Visit Provider Registered Nurse
DX: J30.89 Other allergic rhinitis (principal); G89.29 Other chronic pain; R10.84 Generalized abdominal pain
CPT/HCPCS: 82785; 86003

== ENCOUNTER → 2021-05-04 08:11 | Outpatient (BNVA) | payer MEDICARE, MEDICAID, SELFPAY ==
[2020-12-29 14:35] VITALS: BP 114/59; BMI 47.5
== END ==
PROVIDERS: PCP Registered Nurse; Visit Provider Nurse Practitioner
DX: F41.1 Generalized anxiety disorder (principal); F33.1 Major depressive disorder, recurrent, moderate; G47.00 Insomnia, unspecified
CPT/HCPCS: 99214

== ENCOUNTER → 2021-08-12 09:46 | Outpatient (BNVA) | payer MEDICARE, MEDICAID, SELFPAY ==
[2020-12-29 14:35] VITALS: BP 114/59; BMI 47.5
== END ==
PROVIDERS: PCP Registered Nurse; Visit Provider Nurse Practitioner
DX: F41.1 Generalized anxiety disorder (principal); F33.1 Major depressive disorder, recurrent, moderate; K21.9 Gastro-esophageal reflux disease without esophagitis
CPT/HCPCS: 99214

== ENCOUNTER → 2021-08-24 10:23 | Outpatient (BNVA) | payer MEDICARE, MEDICAID, SELFPAY ==
[2020-12-29 14:35] VITALS: BP 114/59; BMI 47.5
== END ==
PROVIDERS: PCP Registered Nurse; Visit Provider Internal Medicine
DX: M79.7 Fibromyalgia (principal); M25.50 Pain in unspecified joint; R53.83 Other fatigue; Z11.59 Encounter for screening for other viral diseases; R51.9 Headache, unspecified; G89.29 Other chronic pain; F41.9 Anxiety disorder, unspecified
CPT/HCPCS: 36415; 82306; 82550; 82607; 83516; 84425; 85651; 86140; 86160; 86162; 86200; 86235; 86255; 86376; 86617; 86704; 86803; 87340; 99204

== ENCOUNTER 2021-08-26 09:24 | Outpatient (CLI) | payer MEDICARE, MEDICAID, SELFPAY ==
[2020-12-29 14:35] VITALS: BP 114/59; BMI 47.5
--- NOTE | 2021-08-26 09:37 | XR_ITS ---
WS: [id number] XR shoulder RT min 2V* [id number] REASON FOR EXAM: R53.83 - Other fatigue FINDINGS: No fracture or focal bone lesion. Mild narrowing of the acromioclavicular joint with subchondral sclerosis. Small marginal osteophytes. Glenohumeral joint is intact and relatively well-preserved. Mild subchondral sclerosis in the biceps tuberosity at the rotator cuff tendon insertion site. No soft tissue abnormality. XR/XR shoulder RT min 2V* [id number] IMPRESSION: Mild osteoarthritis in the acromioclavicular joint. Mild rotator cuff tendon arthropathy.
--- NOTE | 2021-08-26 09:37 | XR_ITS ---
WS: [email or web address] XR sacroiliac jts m 3V [id number] REASON FOR EXAM: L40.9 - Psoriasis, unspecified FINDINGS: Sacroiliac joints are well defined. No significant sclerosis. No erosions. No bridging or fusion. Vacuum phenomena gas in the inferior left sacroiliac joint. XR/XR sacroiliac jts m 3V 10941 IMPRESSION: No findings of sacroiliitis.
--- NOTE | 2021-08-26 09:37 | XR_ITS ---
WS: [email or web address] XR hand RT 2V [id number] REASON FOR EXAM: R53.83 - Other fatigue FINDINGS: No fracture or focal bone lesion. Mild narrowing with subchondral sclerosis and small marginal osteophytes in the PIP and DIP joints of the fingers and thumb. This is most prominent in the PIP joint of the middle finger and fifth finger . Similar arthropathy is seen in the metacarpal phalangeal joint of the thumb. No soft tissue abnormality. XR/XR hand RT 2V [id number] IMPRESSION: No acute abnormality. Arthropathy compatible with osteoarthritis as above.
--- NOTE | 2021-08-26 09:37 | XR_ITS ---
WS: [email or web address] XR hand LT 2V [id number] REASON FOR EXAM: R53.83 - Other fatigue FINDINGS: No fracture or focal bone lesion. There is mild narrowing with subchondral sclerosis involving the PIP joint of the fifth finger and th e DIP joint of the thumb. Remainder of the joints of the left hand demonstrate no significant arthrop athy. No soft tissue abnormality. XR/XR hand LT 2V [id number] IMPRESSION: Minimal change of osteoarthritis as above. No acute abnormality.
== END 2021-08-26 09:25 | disposition home or self-care (01) ==
PROVIDERS: PCP Registered Nurse; Visit Provider Internal Medicine
DX: R53.83 Other fatigue (principal); L40.9 Psoriasis, unspecified; M19.011 Primary osteoarthritis, right shoulder
CPT/HCPCS: 72202; 73030; 73120

== ENCOUNTER 2021-11-02 13:00 | Outpatient (CLI) | payer MEDICARE, MEDICAID, SELFPAY ==
[2020-12-29 14:35] VITALS: BP 114/59; BMI 47.5
[2021-11-02 13:46] LABS: Erythrocyte Sedimentation Rate 9 mm/hr (0-15)
[2021-11-02 13:58] LABS: Creatine Phosphokinase 201 U/L (26-192); Phosphorus 3.7 mg/dL (2.5-4.5)
== END 2021-11-02 13:01 | disposition home or self-care (01) ==
PROVIDERS: PCP Registered Nurse; Visit Provider Internal Medicine
DX: E51.9 Thiamine deficiency, unspecified (principal); R74.8 Abnormal levels of other serum enzymes
CPT/HCPCS: 82550; 84100; 85651; 86140

== ENCOUNTER → 2021-12-29 10:30 | Outpatient (BNVA) | payer MEDICARE, MEDICAID, SELFPAY ==
[2020-12-29 14:35] VITALS: BP 114/59; BMI 47.5
== END ==
PROVIDERS: PCP Registered Nurse; Visit Provider Obstetrics & Gynecology
DX: Z12.4 Encounter for screening for malignant neoplasm of cervix (principal); R23.2 Flushing
CPT/HCPCS: 83001; 84443; 87624

== ENCOUNTER → 2022-02-17 10:10 | Outpatient (BNVA) | payer MEDICARE, MEDICAID, SELFPAY ==
[2020-12-29 14:35] VITALS: BP 114/59; BMI 47.5
== END ==
PROVIDERS: PCP Nurse Practitioner Family; Visit Provider Internal Medicine
DX: M25.50 Pain in unspecified joint (principal); E03.9 Hypothyroidism, unspecified; M79.7 Fibromyalgia; R74.8 Abnormal levels of other serum enzymes; E51.9 Thiamine deficiency, unspecified; M54.50 Low back pain, unspecified
CPT/HCPCS: 82550; 83735; 84182; 85651; 86140; 86235; 99214

== ENCOUNTER 2022-04-20 08:47 | Outpatient (CLI) | payer MEDICARE, MEDICAID, SELFPAY ==
[2020-12-29 14:35] VITALS: BP 114/59; BMI 47.5
[2022-04-20 09:33] LABS: Basophils # 0.1 10^3/uL (0.0-0.1); Basophils % 0.8 %; Eosinophils # 0.1 10^3/uL (0.0-0.8); Eosinophils % 0.9 %; Hematocrit 40.7 % (37.0-47.0); Hemoglobin 13.5 g/dL (11.5-15.3); Lymphocytes # 1.6 10^3/uL (0.8-4.8); Lymphocytes % 24.1 %; Mean Corpuscular HGB Conc 33.2 g/dL (30.0-36.0); Mean Corpuscular Hemoglobin 29.5 pg (28.0-34.0); Mean Corpuscular Volume 88.9 fl (81-99); Mean Platelet Volume 9.7 fL (7.4-10.4); Monocytes # 0.5 10^3/uL (0.2-0.9); Monocytes % 7.1 %; Neutrophils # 4.41 10^3/uL (1.8-7.7); Neutrophils % 66.9 %; Nucleated Red Blood Cells % 0 %; Platelet Count 254 10^3/cmm (130-400); Red Blood Count 4.58 10^6/uL (4.1-5.3); Red Cell Distribution Width 11.9 % (12.1-15.1); White Blood Count 6.6 10^3/uL (4.0-10.0)
[2022-04-20 09:42] LABS: Erythrocyte Sedimentation Rate 4 mm/hr (0-15)
[2022-04-20 09:58] LABS: Alanine Aminotransferase 17 U/L (0-33); Albumin Level 4.3 g/dL (3.5-5.2); Alkaline Phosphatase 71 U/L (35-105); Anion Gap 13.3 (5-19); Aspartate Amino Transferase 20 U/L (0-32); Blood Urea Nitrogen 10 mg/dL (6-20); Calcium 9.3 mg/dL (8.5-10.5); Carbon Dioxide 30 mmol/L (22-29); Chloride 99 mmol/L (98-107); Creatine Phosphokinase 209 U/L (26-192); Glomerular Filtration Rate 54.2 mL/min (90-130); Glucose 77 mg/dL (65-115); Osmolality Calculated 286 mOsm/kg (285-295); Potassium 3.3 mmol/L (3.5-5.1); Sodium 139 mmol/L (136-145); Total Bilirubin 0.7 mg/dL (0.15-1.2); Total Protein 7.3 g/dL (6.6-8.7)
[2022-04-20 10:27] LABS: CKMB 3.4 ng/mL (0-5.34)
[2022-04-20 11:44] LABS: Thyroid Stimulating Hormone 0.02 uIU/mL (0.27-4.20)
== END 2022-04-20 08:48 | disposition home or self-care (01) ==
LOC: LAB 08:54
PROVIDERS: PCP Nurse Practitioner Family; Visit Provider Internal Medicine
DX: E51.9 Thiamine deficiency, unspecified (principal); M25.50 Pain in unspecified joint; R74.8 Abnormal levels of other serum enzymes; F41.1 Generalized anxiety disorder; E03.9 Hypothyroidism, unspecified; Z79.899 Other long term (current) drug therapy
CPT/HCPCS: 36415; 80053; 82550; 82553; 84443; 85025; 85651; 86140; 99214

== ENCOUNTER 2022-09-08 13:01 | Outpatient (CLI) | payer MEDICARE, MEDICAID, SELFPAY ==
[2020-12-29 14:35] VITALS: BP 114/59; BMI 47.5
[2022-09-08 14:07] LABS: Basophils % 0.3 %; Eosinophils # 0.1 10^3/uL (0.0-0.8); Eosinophils % 1.4 %; Hematocrit 37.9 % (37.0-47.0); Hemoglobin 12.4 g/dL (11.5-15.3); Lymphocytes # 1.8 10^3/uL (0.8-4.8); Lymphocytes % 20.4 %; Mean Corpuscular HGB Conc 32.7 g/dL (30.0-36.0); Mean Corpuscular Hemoglobin 29.3 pg (28.0-34.0); Mean Corpuscular Volume 89.6 fl (81-99); Mean Platelet Volume 9.9 fL (7.4-10.4); Monocytes # 0.6 10^3/uL (0.2-0.9); Monocytes % 6.3 %; Neutrophils # 6.24 10^3/uL (1.8-7.7); Neutrophils % 71.4 %; Nucleated Red Blood Cells % 0 %; Platelet Count 263 10^3/cmm (130-400); Red Blood Count 4.23 10^6/uL (4.1-5.3); Red Cell Distribution Width 13.3 % (12.1-15.1); White Blood Count 8.7 10^3/uL (4.0-10.0)
[2022-09-08 14:14] LABS: Erythrocyte Sedimentation Rate 16 mm/hr (0-15)
[2022-09-08 14:26] LABS: Alanine Aminotransferase 12 U/L (0-33); Albumin Level 3.9 g/dL (3.5-5.2); Alkaline Phosphatase 67 U/L (35-105); Anion Gap 11.1 (5-19); Aspartate Amino Transferase 14 U/L (0-32); Blood Urea Nitrogen 13 mg/dL (6-20); Calcium 8.8 mg/dL (8.5-10.5); Carbon Dioxide 27 mmol/L (22-29); Chloride 101 mmol/L (98-107); Globulin 2.6 g/dL (1.3-4.6); Glomerular Filtration Rate 77.9 mL/min (90-130); Glucose 78 mg/dL (65-115); Osmolality Calculated 279 mOsm/kg (285-295); Potassium 4.1 mmol/L (3.5-5.1); Sodium 135 mmol/L (136-145); Total Bilirubin 0.6 mg/dL (0.15-1.2); Total Protein 6.5 g/dL (6.6-8.7)
[2022-09-08 14:37] LABS: Thyroid Stimulating Hormone 0.02 uIU/mL (0.27-4.20)
== END 2022-09-08 13:02 | disposition home or self-care (01) ==
LOC: LAB 13:05
PROVIDERS: PCP Registered Nurse; Visit Provider Internal Medicine
DX: F41.1 Generalized anxiety disorder (principal); M25.50 Pain in unspecified joint; E03.9 Hypothyroidism, unspecified; M79.7 Fibromyalgia
CPT/HCPCS: 36415; 80053; 84443; 85025; 85651; 86140

== ENCOUNTER → 2022-09-28 13:59 | Outpatient (BNVA) | payer MEDICARE, MEDICAID, SELFPAY ==
[2020-12-29 14:35] VITALS: BP 114/59; BMI 47.5
== END ==
PROVIDERS: PCP Registered Nurse; Visit Provider Internal Medicine
DX: R74.8 Abnormal levels of other serum enzymes (principal); E03.9 Hypothyroidism, unspecified; M25.50 Pain in unspecified joint
CPT/HCPCS: 36415; 81003; 82550; 83520; 84100; 84443; 85651; 86140; 99214

== ENCOUNTER → 2023-02-21 15:14 | Outpatient (BNVA) | payer MEDICARE, MEDICAID, OTHER, SELFPAY ==
[2020-12-29 14:35] VITALS: BP 114/59; BMI 47.5
== END ==
PROVIDERS: PCP Registered Nurse; Visit Provider Obstetrics & Gynecology
DX: E28.2 Polycystic ovarian syndrome (principal); F41.1 Generalized anxiety disorder; E66.01 Morbid (severe) obesity due to excess calories; Z68.41 Body mass index [BMI] 40.0-44.9, adult; Z79.899 Other long term (current) drug therapy; N92.6 Irregular menstruation, unspecified
CPT/HCPCS: 80061; 83001; 83036; 84146; 84443; 85007; 85027

== ENCOUNTER → 2023-03-02 14:04 | Outpatient (BNVA) | payer MEDICARE, MEDICAID, OTHER, SELFPAY ==
[2020-12-29 14:35] VITALS: BP 114/59; BMI 47.5
== END ==
PROVIDERS: PCP Registered Nurse; Visit Provider Obstetrics & Gynecology
DX: N92.6 Irregular menstruation, unspecified (principal)
CPT/HCPCS: 76830

== ENCOUNTER → 2023-05-25 15:33 | Outpatient (BNVA) | payer MEDICARE, MEDICAID, SELFPAY ==
[2020-12-29 14:35] VITALS: BP 114/59; BMI 47.5
== END ==
PROVIDERS: PCP Registered Nurse; Visit Provider Dermatology
DX: L82.0 Inflamed seborrheic keratosis (principal); L91.8 Other hypertrophic disorders of the skin; L85.8 Other specified epidermal thickening; L72.0 Epidermal cyst; L81.3 Cafe au lait spots; D22.5 Melanocytic nevi of trunk
CPT/HCPCS: 11200; 17110; 99213

== ENCOUNTER → 2023-10-10 11:14 | Outpatient (BNVA) | payer MEDICARE, MEDICAID, OTHER, SELFPAY ==
[2020-12-29 14:35] VITALS: BP 114/59; BMI 47.5
== END ==
PROVIDERS: PCP Registered Nurse; Visit Provider Nurse Practitioner
DX: M17.11 Unilateral primary osteoarthritis, right knee; Z68.43 Body mass index [BMI] 50.0-59.9, adult
CPT/HCPCS: 73560; 73565; 99204

== ENCOUNTER → 2023-10-19 12:55 | Outpatient (BNVA) | payer MEDICARE, MEDICAID, OTHER, SELFPAY ==
[2020-12-29 14:35] VITALS: BP 114/59; BMI 47.5
== END ==
PROVIDERS: PCP Registered Nurse; Visit Provider Nurse Practitioner
DX: M79.642 Pain in left hand (principal); M79.641 Pain in right hand; G56.01 Carpal tunnel syndrome, right upper limb
CPT/HCPCS: 73130; 99214

== ENCOUNTER → 2023-11-02 17:02 | Outpatient (BNVA) | payer MEDICARE, MEDICAID, OTHER, SELFPAY ==
[2020-12-29 14:35] VITALS: BP 114/59; BMI 47.5
== END ==
PROVIDERS: PCP Registered Nurse; Visit Provider Nurse Practitioner
DX: G56.00 Carpal tunnel syndrome, unspecified upper limb (principal)
CPT/HCPCS: 36415; 80053; 81001; 85025; 99213

== ENCOUNTER 2023-11-17 05:41 | Day surgery (SDC) | payer MEDICARE, MEDICAID, SELFPAY ==
[2020-12-29 14:35] VITALS: BP 114/59; BMI 47.5
[2023-11-17] VITALS (9 sets, daily range): BP systolic 101–152; BP diastolic 66–113; PULSE 64–75; RESP 17–18; TEMP 36.2–36.3; O2SAT 92–99; BMI 53.6
[2023-11-17 06:29] LABS: Glucose Point of Care 100 mg/dL (70-110)
[2023-11-17] MEDS: acetaminophen 1,000 MG/100 ML PIGGYBACK 400 MG IV (06:33)
[2023-11-17] MEDS: scopolamine 1.5 Patch 1 PATCH TRANSDERMA (06:38)
[2023-11-17] MEDS: sodium chloride 0.9% 1,000 ML 30 ML IV (06:38)
[2023-11-17] MEDS: CELEcoxib 200 mg Capsule 400 MG PO (06:39)
[2023-11-17] MEDS: gabapentin 300 mg Capsule PO (06:39)
--- NOTE | 2023-11-17 06:40 | P.ANESASSM_ITS ---
Pre-Anesthetic Assessment Height/Weight: Height 1.65 m Weight 146.057 kg Temp Pulse Resp BP Pulse Ox O2 Del Method 97.4 F L 75 18 121/90 95 Room Air 11/17/23 06:15 11/17/23 06:15 11/17/23 06:15 11/17/23 06:15 11/17/23 06:15 11/17/23 06:18 Operation Date: 11/17/23 07:00 Proposed Procedures p RIGHT WRIST CARPAL TUNNEL RELEASE(Right) - Tanisha Villasenor MD Familial anesthetic complications: None Was Beta Hector taken within 24 hours: N/A Was Clonidine taken within 24 hours: N/A Last intake: Intake Last Liquid Date 11/16/23 Last Liquid Time 23:00 Last Solid Date 11/16/23 Last Solid Time 23:00 Social No alcohol and No tobacco Exam alert, oriented x 3, clear to auscultation bilaterally and regular rate & rhythm Airway Mallampati: Class IV Dentition: other (missing) Chronic Renal Insufficiency GI Gastroesophageal Reflux Disease Metabolic Morbid Obesity and Thyroid Disease PCOS Musc/skel Fibromyalgia Anesthetic Plan ASA status: 3 Anesthesia: General Risk of > 500 ml blood loss (7ml/kg in children): No Medications/Allergies Home Medications Medication Instructions Recorded Confirmed Last Taken Type medroxyprogesterone 10 mg tablet 10 mg PO DAILY 10/25/19 11/15/23 1 Day Ago History ~03/18/20 polyethylene glycol 3350 17 gram 17 gm PO DAILY 10/25/19 11/15/23 1 Day Ago History oral powder packet ~03/18/20 spironolactone 25 mg tablet 50 mg PO DAILY 12/20/19 11/15/23 11/15/23 History hydrocortisone 1 % lotion 1 applic topical BID PRN Rash 01/16/20 11/15/23 Unknown History (Cortisone (hydrocortisone)) Apple Cider Vinegar 450 mg PO DAILY 08/24/21 11/15/23 Unknown History Exipure PO 08/24/21 11/02/23 Unknown History L-Theanine 100 mg PO DAILY PRN Anxiety 08/24/21 11/15/23 Unknown History Womens Daily Vitamins w/Iron 1 tab PO DAILY 08/24/21 11/15/23 11/15/23 History ascorbic acid (vitamin C) 500 mg 500 mg PO DAILY 08/24/21 11/15/23 Unknown History capsule baclofen 10 mg tablet 30 mg PO DAILY 08/24/21 11/15/23 11/14/23 History chromium 200 mcg-brindal issa 500 1 tab PO TID 08/24/21 11/15/23 Unknown History mg tablet (Garcinia Cambogia) cranberry 500 mg capsule 500 mg PO DAILY PRN uti 08/24/21 11/15/23 Unknown History fluticasone propionate 50 1 spray intranasal DAILY PRN 08/24/21 11/15/23 Unknown History mcg/actuation nasal Allergy Symptoms spray,suspension guaifenesin 600 mg tablet, 600 mg PO DAILY PRN Congestion 08/24/21 11/15/23 11/15/23 History extended release 12 hr (Mucinex) ipratropium bromide 21 mcg (0.03 2 spray intranasal BID 08/24/21 11/15/23 11/15/23 History %) nasal spray nystatin 100,000 unit/gram topical 1 applic topical DAILY 08/24/21 11/15/23 Unknown History ointment valerian root 500 mg capsule 500 mg PO DAILY 08/24/21 11/15/23 Unknown History vit C-vit D6-R-kogz-elderberry 1 tab PO DAILY 08/24/21 11/15/23 11/15/23 History [Airborne Vits Zinc Elderberry] wheat dextrin 3 gram/3.5 gram oral 1.5 g PO DAILY 08/24/21 11/15/23 Unknown History powder esomeprazole magnesium 40 mg 80 mg PO BID 12/29/21 11/15/23 11/17/23 History capsule,delayed release (Nexium) melatonin 10 mg-lemon balm leaf 1 tab PO BEDTIME PRN Sleep 12/29/21 11/15/23 Unknown History extract 1 mg tablet vitamin E acetate PO 12/29/21 11/02/23 Unknown History levothyroxine 200 mcg tablet 200 mcg PO DAILY 06/20/23 11/15/23 11/14/23 History cetirizine 10 mg capsule (Zyrtec) 10 mg PO DAILY PRN Allergy Symptoms 09/27/23 11/15/23 11/14/23 History hydrocodone 10 mg-acetaminophen 1 tab PO BID PRN Pain 09/27/23 11/15/23 11/17/23 History 325 mg tablet hydroxyzine HCl 50 mg tablet 50 mg PO BID PRN anxiety #60 tabs 09/27/23 11/15/23 11/14/23 Rx ibuprofen 600 mg tablet 600 mg PO Q6H PRN pain 09/27/23 11/15/23 11/13/23 History paroxetine HCl 40 mg tablet 40 mg PO .HS #30 tabs 09/27/23 11/15/23 11/13/23 Rx trazodone 100 mg tablet 200 mg (2 x 100 mg) PO .at h.s PRN 09/27/23 11/15/23 11/14/23 Rx sleep #60 tabs alprazolam 0.25 mg tablet 0.25 mg PO BID PRN anxiety #60 tabs 09/29/23 11/15/23 11/17/23 Rx diclofenac sodium 1 % topical gel 4 g topical QID #100 grams 10/10/23 11/15/23 11/13/23 Rx (Voltaren Arthritis Pain) buspirone 30 mg tablet 30 mg PO BID 11/15/23 11/15/23 11/17/23 History sumatriptan succinate 100 mg tablet 100 mg PO DIRECTED PRN Migraine 11/15/23 11/15/23 11/13/23 History Headache Allergies Allergy/AdvReac Type Severity Reaction Status Date / Time sunflower seed Allergy Intermediate ALGY-Difficulty Verified 11/02/23 15:29 Breathing phentermine Allergy Mild ADR-Anxiety Verified 11/02/23 15:29 semaglutide [From Ozempic] Allergy Unknown blood Verified 11/02/23 15:29 sugar issues sulfa drugs Allergy Unknown unknown Uncoded 11/02/23 15:29 [facility] Anesthesia Medical History Bilateral hand pain Adult BMI 50.0-59.9 kg/sq m Osteoarthritis of right knee PCOS (polycystic ovarian syndrome) Psychiatric care Chronic generalized abdominal pain Morbid obesity GERD without esophagitis Seasonal allergies Hypertension Hypothyroid PCOS (polycystic ovarian syndrome) IBS (irritable bowel syndrome) Raynauds disease Osteoarthritis GERD (gastroesophageal reflux disease) Fibromyalgia Other nursing home (current) drug therapy Major depressive disorder, recurrent, moderate Generalized anxiety disorder Surgical History History of colonoscopy History of esophagogastroduodenoscopy (EGD) Family History Mother Diabetes Heart disease Uterine cancer, Onset Age: 60 Grandmother Diabetes Heart disease Father Heart disease Hypertension Grandfather Diabetes Maternal Heart disease Maternal Brother Diabetes Family/Other Stroke Maternal Great Grandmother Denies family history of Colon cancer Ovarian cancer Breast cancer Bleeding disorder Thyroid disease Social History Smoking and tobacco/nicotine status: never used tobacco/nicotine Second hand smoke exposure: Yes Alcohol intake: never Substance/Drug Use: never Additional social history: - Tobacco use: Never Alcohol use: Never Drug use: Never Female Reproductive History Date of last menstrual period: 10/17/23 Data Anesthesia Cardiac Studies: No Data to Display
[2023-11-17 06:56] LABS: OR HCG Qualitative Urine Negative (Negative)
[2023-11-17] MEDS: ceFAZolin 3,000 MG in sodium chloride 0.9% (plus) 100 ML 200 MG IV (07:05)
--- NOTE | 2023-11-17 07:05 | P.HPUD_ITS ---
Surgery/Procedure H&P Update DATE OF PROCEDURE: November 17, 2023 DATE H&P PERFORMED: 11/02/23 H&P UPDATE INFORMATION: I have reviewed H&P completed within last 30 days, I have examined patient prior to procedure, No changes to prior documentation and H&P is in [facility] EMR on date indicated PLANNED PROCEDURE: Operation Date: 11/17/23 07:00 Proposed Procedures p RIGHT WRIST CARPAL TUNNEL RELEASE(Right) - Tanisha Villasenor MD Related Problem List Diagnoses (1) Carpal tunnel syndrome on right:
--- NOTE | 2023-11-17 07:06 | P.HPUD_ITS ---
Surgery/Procedure H&P Update DATE OF PROCEDURE: November 17, 2023 DATE H&P PERFORMED: 11/02/23 H&P UPDATE INFORMATION: I have reviewed H&P completed within last 30 days, I have examined patient prior to procedure, No changes to prior documentation and H&P is in [facility] EMR on date indicated PLANNED PROCEDURE: Operation Date: 11/17/23 07:00 Proposed Procedures p RIGHT WRIST CARPAL TUNNEL RELEASE(Right) - Tanisha Villasenor MD Related Problem List Diagnoses (1) Carpal tunnel syndrome on right:
[2023-11-17] MEDS: BUPivacaine 0.5% INJ 30 mL XX (08:02)
--- NOTE | 2023-11-17 08:46 | P.OP_ITS ---
Operative Report Date of procedure: November 17, 2023 Pre-op diagnosis: Right carpal tunnel syndrome Post-op diagnosis: Right carpal tunnel syndrome Post-op findings: Severe compression across the carpal canal Procedure done: Right carpal tunnel release Implants: None Specimens removed/disposition: None Pathology: None Surgeon: Tanisha Villasenor MD Meteorology Instructor: None Anesthesia: General (Intubated, ASA 3) Estimated blood loss (mL): 5 Tourniquet time (min): 24 (At 2400 mmHg) IV fluids (mL): 700 Urine output (mL): 0 (No Lal) Complications: None Condition: stable Disposition: PACU (Then return to same-day surgery for discharge to home) Brief History: This 43-year-old woman presents today for right carpal tunnel lease. She rated her pain in clinic at 8 of 10, and she reported numbness and tingling in her fingers. The patient had nerve conduction study which demonstrated moderate right median neuropathy at the wrist with no myopathic process. After discussion in the office, the patient wished to proceed with carpal tunnel release. Risk and complications were discussed with her, and consents were signed. Procedure: The patient was brought to the operating theater. The patient had general anesthetic, intubated, ASA 3 which was well-tolerated. The tourniquet was elevated to 250 mmHg for a total tourniquet time of 24 minutes. The patient was also given Ancef 3 g preoperatively. The arm was then prepped and draped with DuraPrep in usual fashion with the arm draped free. A surgical pause was performed. At the time, the surgical pause, we confirmed the site and side of surgery. We also confirmed the patient's identity, appropriate and timely administration of preoperative antibiotics and preoperative surgical markings. An incision was then made along the thenar crease. The incision crossed the wrist joint in a curvilinear fashion. Dissection continued through skin and soft tissues using a scalpel. The palmaris longus was identified along with the t ransverse carpal ligament. Each of these was released carefully to avoid injury to the median nerve. We were able to dissect gently into the carpal canal which was noted to be quite tight with significant compression across the median nerve. The nerve was visualized and was an hourglass shape. The canal was subsequently palpated to assure there was no bony encroachment upon the canal. There was a quite thickened fibrous tissue within the canal, and this was opened longitudinally as well. The canal was then palpated distally and proximally to assure that my small finger was passed easily without impingement. Finding this to be so, attention was directed to closure. The wound was irrigated with ropivacaine plain. It was then closed with 3-0 nylon in an interrupted mattress fashion. Sterile dressing was then placed consisting of Dermabond, OpSite, fluffed fluffs, sterile soft roll, and an William wrap. The tourniquet was released after 24 minutes. There were no complications. There were no specimens. The procedure was well tolerated. Plan is the patient will be discharged home. Related Problem List Diagnoses (1) Carpal tunnel syndrome on right:
--- NOTE | 2023-11-17 09:35 | ANE.PACU2 ---
Inpatient post-anesthesia follow up: Airway intact: Yes Vital signs: Temperature 97.1 F Pulse Rate 70 Respiratory Rate 17 Blood Pressure 101/66 Pulse Oximetry 92 Oxygen Delivery Me thod Room Air Oxygen Flow Rate 10 Fraction of Inspir ed Oxygen Hydration adequate: Yes Nausea and vomiting: No Pain level: 1 Mental status: Baseline
== END 2023-11-17 09:35 | disposition home or self-care (01) ==
PROVIDERS: Anesthesiology; PCP Registered Nurse; Visit Provider Specialist
PROC: (CPT 64721; principal; 2023-11-17 07:00)
DX: G56.01 Carpal tunnel syndrome, right upper limb (principal); K21.9 Gastro-esophageal reflux disease without esophagitis; E66.01 Morbid (severe) obesity due to excess calories; Z68.43 Body mass index [BMI] 50.0-59.9, adult; E28.2 Polycystic ovarian syndrome; M79.7 Fibromyalgia; I10 Essential (primary) hypertension; E03.9 Hypothyroidism, unspecified
CPT/HCPCS: 64721; 36416; 81025; 82962; J0131; J0330; J0690; J1100; J2405; J2704; J3010; J3490; J7030

== ENCOUNTER → 2023-11-30 10:27 | Outpatient (BNVA) | payer MEDICARE, MEDICAID, SELFPAY ==
[2020-12-29 14:35] VITALS: BP 114/59; BMI 47.5
== END ==
PROVIDERS: PCP Registered Nurse; Visit Provider Nurse Practitioner
DX: Z98.890 Other specified postprocedural states (principal)
CPT/HCPCS: 99024

== ENCOUNTER → 2023-12-23 10:38 | Outpatient (BNVA) | payer MEDICARE, MEDICAID, SELFPAY ==
[2020-12-29 14:35] VITALS: BP 114/59; BMI 47.5
== END ==
PROVIDERS: PCP Registered Nurse; Visit Provider Nurse Practitioner
DX: M17.11 Unilateral primary osteoarthritis, right knee; Z68.43 Body mass index [BMI] 50.0-59.9, adult
CPT/HCPCS: 73560; 73565; 99213

== ENCOUNTER → 2024-01-05 15:04 | Outpatient (BNVA) | payer MEDICARE, MEDICAID, OTHER, SELFPAY ==
[2020-12-29 14:35] VITALS: BP 114/59; BMI 47.5
== END ==
PROVIDERS: PCP Registered Nurse; Visit Provider Internal Medicine Cardiovascular Disease
DX: I87.2 Venous insufficiency (chronic) (peripheral) (principal); R60.0 Localized edema
CPT/HCPCS: 99204

== ENCOUNTER → 2024-01-09 13:04 | Outpatient (BNVA) | payer MEDICARE, MEDICAID, SELFPAY ==
[2020-12-29 14:35] VITALS: BP 114/59; BMI 47.5
== END ==
PROVIDERS: PCP Registered Nurse; Visit Provider Nurse Practitioner
DX: Z98.890 Other specified postprocedural states (principal)
CPT/HCPCS: 99024

== ENCOUNTER 2024-02-07 12:51 | Outpatient (CLI) | payer MEDICARE, MEDICAID, SELFPAY ==
[2020-12-29 14:35] VITALS: BP 114/59; BMI 47.5
--- NOTE | 2024-02-07 13:07 | USCV_ITS ---
Luisito Berrios Age: 43 Gender: F : 1980 Exam Date: 02/07/2024 13:54 Ordering Phys: Candido Corcoran MD ([email or web address]) Technologist: VITALY [place] [facility] [place]: HISTORY: PROCEDURES: Bilateral duplex Venous Insufficiency study of the Deep and Superficial systems was carried out according to normal protocol with the patient in supine positon for deep system and dependent position for the superficial system. FINDINGS: All deep veins demonstrated compressibility without evidence of intraluminal thrombus or increased echogenicity. Spectral analysis of Doppler signals demonstrates normal response to compression maneuvers indicating patency without obstruction. Reflux determinations were made with the patient in the dependent position, the weight being on the contralateral leg. one small reflux on rt gsaph at takeoff . Pt not good canidate for ablation The veins are found to be easily compressible spontaneous blood flow. The reflux time at the right saphenofemoral junction was 1.1 seconds. The venous diameters of 0.3 cm and was at a depth of 1.7 cm. No other reflexes were noted. The deep veins were found to be patent with spontaneous flow bilaterally. There were all easily compressible on both sides CONCLUSIONS 1. Patent deep and superficial veins bilaterally with no evidence of any thrombosis 2. Venous reflux of greater than 500 ms was noted at the saphenofemoral junction on the right side(1.1-second). 3. No other reflexes are noted bilaterally on either sides. 4. The reflux time, venous diameter and distance from the surface are all as mentioned above. Dr Juancarlos Edmond MD [facility] (Electronically Signed) Final Date: 11 February 2024 16:59 S
--- NOTE | 2024-02-07 13:15 | USCV_ITS ---
Luisito Berrios Age: 43 Gender: F : 1980 Exam Date: 02/07/2024 13:39 Ordering Phys: Candido Corcoran MD ([email or web address]) Technologist: JOHNNY Exam Location: [facility] [place] Indication: CHEST PAIN BP: 122 / 81 HR: 81 Rhythm: Sinus Technical Quality: Adequate MEASUREMENTS (Male / Female) Normal Values 2D ECHO LV Diastolic Diameter PLAX 4.8 cm 4.2 - 5.9 / 3.9 - 5.3 cm IVS Diastolic Thickness 1.1 cm 0.6 - 1.0 / 0.6 - 0.9 cm IVS Systolic Thickness 1.3 cm LVPW Diastolic Thickness 2.0 cm 0.6 - 1.0 / 0.6 - 0.9 cm LVPW Systolic Thickness 2.4 cm LVOT Diameter 2.0 cm LV Ejection Fraction 2D Teich 68.1 % LV Ejection Fraction MOD 4C 65.6 % LV Ejection Fraction MOD 2C 60.0 % LV Ejection Fraction 2C AL 60.6 % LA Diameter 3.0 cm RA Systolic Volume 4C AL 26.3 ml RA Systolic Volume 4C MOD 25.0 ml LA Sys Volume AL 23.5 cm cubed LA Sys Volume Index AL 8.7 cm cubed/m squared Aorta at Sinotubular Diameter 2.4 cm M-MODE LA Ao Ratio MM 0.9 AV Cusp Separation MM 1.9 cm DOPPLER AV Peak Velocity 139.0 cm/s LVOT Peak Velocity 141.0 cm/s AV Area Cont Eq vti 2.7 cm squared AV Area Cont Eq pk 3.3 cm squared MV Peak Velocity 79.0 cm/s MV Area PHT 3.8 cm squared Mitral E to A Ratio 0.8 TR Peak Velocity 125.0 cm/s TR Peak Gradient 6.3 mmHg TR Mean Velocity 103.0 cm/s TR Mean Gradient 4.4 mmHg TR Velocity Time Integral 34.4 cm TV Peak E Velocity 46.0 cm/s Right Atrial Pressure 3.0 mmHg Pulmonary Artery Systolic Pressu 9.3 mmHg PV Peak Velocity 96.0 cm/s RV Ejection Time 0.3 s FINDINGS Left Ventricle Normal left ventricular size, systolic function and wall thickness, with no regional wall motion abnormalities. Left ventricular ejection fraction is estimated at 60 %. Grade I/IV diastolic dysfunction (abnormal relaxation filling pattern), normal to mildly elevated filling pressures. Right Ventricle The right ventricle is normal in size and function. Right Atrium The right atrium is normal in size. Left Atrium The left atrium is normal in size. Mitral Valve Structurally normal mitral valve without significant stenosis or prolapse. There is no mitral regurgitation. Aortic Valve Structurally normal aortic valve without significant sclerosis or stenosis. There is no aortic regurgitation. Tricuspid Valve Structurally normal tricuspid valve without significant stenosis or regurgitation. Pulmonary artery systolic pressure is normal. Pulmonic Valve Structurally normal pulmonic valve without significant stenosis. There is no pulmonic regurgitation. Pericardium Normal pericardium without effusion. Aorta Normal ascending aorta dimension. IVC The inferior vena cava appears normal. CONCLUSIONS Normal left ventricular size, systolic function and wall thickness, with no regional wall motion abnormalities. Left ventricular ejection fraction is estimated at 60 %. Grade I/IV diastolic dysfunction (abnormal relaxation filling pattern), normal to mildly elevated filling pressures. There is no pericardial effusion. No significant valve abnormalities. Pulmonary artery systolic pressure is within normal limits. Right atrial pressure is around 5 mm of mercury. Candido Corcoran MD (Electronically Signed) Final Date: 07 February 2024 19:52 S
== END 2024-02-07 12:52 | disposition home or self-care (01) ==
LOC: RAD 12:52
PROVIDERS: PCP Registered Nurse; Visit Provider Internal Medicine Cardiovascular Disease
DX: I50.30 Unspecified diastolic (congestive) heart failure (principal); R07.9 Chest pain, unspecified; R06.02 Shortness of breath; I87.2 Venous insufficiency (chronic) (peripheral)
CPT/HCPCS: 93306; 93970

== ENCOUNTER → 2024-03-30 10:48 | Outpatient (BNVA) | payer MEDICARE, MEDICAID, SELFPAY ==
[2020-12-29 14:35] VITALS: BP 114/59; BMI 47.5
== END ==
PROVIDERS: PCP Registered Nurse; Visit Provider Nurse Practitioner
DX: M06.342 Rheumatoid nodule, left hand (principal); M65.342 Trigger finger, left ring finger; L30.1 Dyshidrosis [pompholyx]; I87.2 Venous insufficiency (chronic) (peripheral); R07.9 Chest pain, unspecified; R60.0 Localized edema
CPT/HCPCS: 73130; 99214

== ENCOUNTER → 2024-05-04 11:12 | Outpatient (BNVA) | payer MEDICARE, MEDICAID, SELFPAY ==
[2020-12-29 14:35] VITALS: BP 114/59; BMI 47.5
== END ==
PROVIDERS: PCP Registered Nurse; Visit Provider Nurse Practitioner
DX: M17.11 Unilateral primary osteoarthritis, right knee; Z68.43 Body mass index [BMI] 50.0-59.9, adult
CPT/HCPCS: 20610; 99213; J1100; J2795; J3301

== ENCOUNTER → 2024-05-28 13:17 | Outpatient (BNVA) | payer MEDICAID, SELFPAY ==
[2020-12-29 14:35] VITALS: BP 114/59; BMI 47.5
== END ==
PROVIDERS: PCP Registered Nurse; Visit Provider Nurse Practitioner Family
DX: D23.71 Other benign neoplasm of skin of right lower limb, including hip (principal); L81.4 Other melanin hyperpigmentation; L82.1 Other seborrheic keratosis; L82.0 Inflamed seborrheic keratosis; L53.8 Other specified erythematous conditions; R58 Hemorrhage, not elsewhere classified; Z78.9 Other specified health status; R20.8 Other disturbances of skin sensation; L29.89 Other pruritus; D48.5 Neoplasm of uncertain behavior of skin
CPT/HCPCS: 11102; 17110; 99213

== ENCOUNTER → 2024-06-25 13:16 | Outpatient (BNVA) | payer MEDICARE, MEDICAID, SELFPAY ==
[2020-12-29 14:35] VITALS: BP 114/59; BMI 47.5
== END ==
PROVIDERS: PCP Registered Nurse; Visit Provider Nurse Practitioner
DX: M17.11 Unilateral primary osteoarthritis, right knee (principal); Z68.43 Body mass index [BMI] 50.0-59.9, adult
CPT/HCPCS: 20610; 99213; J1100; J2795; J3301; J9999

== ENCOUNTER → 2024-07-02 14:39 | Outpatient (BNVA) | payer MEDICARE, MEDICAID, SELFPAY ==
[2020-12-29 14:35] VITALS: BP 114/59; BMI 47.5
== END ==
PROVIDERS: PCP Registered Nurse; Visit Provider Nurse Practitioner
DX: G56.02 Carpal tunnel syndrome, left upper limb (principal)
CPT/HCPCS: 99214

== ENCOUNTER → 2024-07-19 11:02 | Outpatient (BNVA) | payer MEDICARE, MEDICAID, SELFPAY ==
[2020-12-29 14:35] VITALS: BP 114/59; BMI 47.5
== END ==
PROVIDERS: PCP Registered Nurse; Visit Provider Orthopaedic Surgery
DX: M54.9 Dorsalgia, unspecified (principal); M48.062 Spinal stenosis, lumbar region with neurogenic claudication
CPT/HCPCS: 72110; 99204

== ENCOUNTER 2024-07-25 13:57 | Outpatient (CLI) | payer MEDICARE, MEDICAID, SELFPAY ==
[2020-12-29 14:35] VITALS: BP 114/59; BMI 47.5
[2024-07-25 14:48] LABS: Basophils # 0.1 10^3/uL (0.0-0.1); Basophils % 0.7 %; Eosinophils # 0.3 10^3/uL (0.0-0.8); Eosinophils % 2.5 %; Hematocrit 38.2 % (36-47); Lymphocytes # 2.2 10^3/uL (0.8-4.8); Lymphocytes % 20.6 %; Mean Corpuscular Hemoglobin 30.3 pg (27-33); Mean Corpuscular Volume 91.8 fl (85-98); Mean Platelet Volume 9.6 fL (7.4-10.4); Monocytes # 0.7 10^3/uL (0.2-0.9); Monocytes % 6.6 %; Neutrophils # 7.34 10^3/uL (1.8-7.7); Neutrophils % 69.1 %; Nucleated Red Blood Cells % 0 %; Platelet Count 300 10^3/cmm (157-399); Red Blood Count 4.16 10^6/uL (3.85-5.65); Red Cell Distribution Width 13.5 % (12.1-15.1); White Blood Count 10.62 10^3/uL (3.29-11.43)
[2024-07-25 14:53] LABS: Bacteria Urine None Seen /hpf; RBC Urine 0-2 /hpf (0-2); WBC Urine 0-5 /hpf (0-5)
[2024-07-25 14:54] LABS: Alanine Aminotransferase 16 U/L (0-33); Albumin Level 4.1 g/dL (3.5-5.2); Alkaline Phosphatase 65 U/L (35-105); Aspartate Amino Transferase 22 U/L (0-32); Blood Urea Nitrogen 13 mg/dL (6-20); Calcium 8.6 mg/dL (8.5-10.5); Carbon Dioxide 24 mmol/L (22-29); Chloride 102 mmol/L (98-107); Globulin 2.8 g/dL (1.3-4.6); Glomerular Filtration Rate 53.7 mL/min (90-130); Glucose 71 mg/dL (65-115); Osmolality Calculated 283 mOsm/kg (285-295); Sodium 137 mmol/L (136-145); Total Bilirubin 0.4 mg/dL (0.15-1.2); Total Protein 6.9 g/dL (6.6-8.7)
[2024-07-25 14:55] LABS: Anion Gap 14.9 (5-19); Potassium 3.9 mmol/L (3.5-5.1)
[2024-07-25 15:00] LABS: Add Urine Culture? No; Add Urine Microscopic? YES; Bilirubin Urine Neg (Negative); Blood Urine Neg (Negative); Glucose Urine UA Norm (Normal); Ketones Urine Negative (Negative); Leukocyte Esterase Urine Negative (Negative); Nitrate Urine Negative (Negative); Protein Urine Neg (Negative); Specific Gravity, Urine 1.025 (1.005-1.030); Urine Appearance Slightly Cloudy (CLEAR); Urine Color Yellow (Yellow); Urobilinogen Urine Norm (Negative); pH Urine 5 (5-7)
== END 2024-07-25 13:58 | disposition home or self-care (01) ==
PROVIDERS: PCP Registered Nurse; Visit Provider Nurse Practitioner
DX: G56.02 Carpal tunnel syndrome, left upper limb (principal); M48.062 Spinal stenosis, lumbar region with neurogenic claudication
CPT/HCPCS: 36415; 80053; 81001; 85025; 99214

== ENCOUNTER → 2024-07-25 14:31 | Outpatient (BNVA) | payer MEDICARE, MEDICAID, SELFPAY ==
[2020-12-29 14:35] VITALS: BP 114/59; BMI 47.5
== END ==
PROVIDERS: PCP Registered Nurse; Visit Provider Internal Medicine Cardiovascular Disease
DX: R07.89 Other chest pain (principal); I12.9 Hypertensive chronic kidney disease with stage 1 through stage 4 chronic kidney disease, or unspecified chronic kidney disease; N18.9 Chronic kidney disease, unspecified; I87.2 Venous insufficiency (chronic) (peripheral)
CPT/HCPCS: 99214

== ENCOUNTER 2024-08-07 10:23 | Outpatient (CLI) | payer MEDICARE, MEDICAID, SELFPAY ==
[2020-12-29 14:35] VITALS: BP 114/59; BMI 47.5
--- NOTE | 2024-08-07 10:41 | ECG_ITS ---
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 Interpretive Statements Lung unchanged pre/post procedure; Intraprocedure shortess of breath; Symptoms resoled by discharge PROCEDURE: At the baseline, the EKG revealed normal sinus rhythm with a normal ST Ts. The baseline heart was 70 bpm with a blood pressue of 146/88 mm of Hg Lexiscan was infused over a period of 20 seconds. A total of 0.4 milligrams of Lexiscan was infused. The stress phase was continued for a total of 5 minutes. Heart rate at the end of the stress phase was 70 bpm with a blood pressure 111/87 mm of Hg. The EKG at the peak infusion revealed no significant changes. Sestamibi was injected 20 seconds after the Lexiscan infusion. Heart rate at the end of the recovery phase was 76 bpm with a blood pressure of 115/86 mm of Hg. CONCLUSION: 1. No significant EKG changes with the LexiScan infusion 2. No LexiScan induced chest pain or cardiac arrhythmia 3. Normal blood pressure and heart rate response 4. Sestamibi/sestamibi perfusion scan pending; see separate report. Electronically Signed On 08-12-2024 13:12:12 CDT by Juancarlos Edmnod M.D. [email or web address]
[2024-08-07 10:42] VITALS: BMI 53.4
--- NOTE | 2024-08-07 10:42 | NMCV_ITS ---
NM pavan perf SPECT r/s* [id number] Luisito Berrios Age: 43 Gender: F : 1980 Exam Date: 08/07/2024 12:18 Ordering Phys: Candido Corcoran MD ([email or web address]) Technologist: CHICO Herrmann Exam Location: [facility] Indications: cp STRESS TEST Please see separate stress test report in [facility] for full findings IMAGE PROTOCOL Rest/Stress 1 Lexiscan Day Radiopharmaceutical Dose (mCi) Administration Site Administered by Rest: Tc-99m 10.5 IV Kristen Chavez SYSTEMS APPLICATIONS PROGRAMMING LEAD Sestamibi Stress:Tc-99m 33 IV Kristen Garzagle, SYSTEMS APPLICATIONS PROGRAMMING LEAD Sestamibi Rest: 07-Aug-2024 60 Discovery 630 Stress: 07-Aug-2024 30 Discovery 630 0.4mg Lexiscan. Supine position only as patient was unable to lay prone. SPECT RESULTS Technical Quality: Good Raw Data Analysis: Normal Image Corrections: No attenuation or motion correction applied Summed Stress Score: 7 Summed Rest Score: 4 Summed Difference Score: 3 PERFUSION FINDINGS Large area of fixed perfusion defect noted in basal to distal inferior inferoseptal inferolateral wall with small to medium sized area of mild reversibility suggestive of old myocardial infarction surrounded by medium sized area of mild to moderate hetal-infarct ischemia in the inferior wall FUNCTIONAL RESULTS (calculated via Gated SPECT) Stress Image LV EF (%): 73 Stress EDV (mL):117 TID: 1.15 Stress ESV (mL):32 FUNCTIONAL FINDINGS: There is normal left ventricular systolic function. IMPRESSIONS Large area of fixed perfusion defect noted in basal to distal inferior inferoseptal inferolateral wall with small to medium sized area of mild reversibility suggestive of old myocardial infarction surrounded by medium sized area of mild to moderate hetal-infarct ischemia in the inferior wall Candido Corcoran MD (Electronically Signed) Final Date: 09 August 2024 11:03 S
--- NOTE | 2024-08-07 10:45 | PC.NURSE ---
Patient has not had an hysterectomy or tubla lation. She denies the testing. Her last menstrual period was sometime in May . She states that she has PCOS and has never had sex. The effects of ionizing radiation on an unborn fetus was explained to the patient and she opted to sign a waiver stating that she declined the test. This waiver will be sent to medical records to be scanned into the chart.
[2024-08-07] MEDS: regadenoson 0.4 Mg/5 ml Syringe IVP (11:50)
[2024-08-07 12:04] VITALS: BP 115/86; PULSE 73
== END 2024-08-07 10:24 | disposition home or self-care (01) ==
PROVIDERS: PCP Registered Nurse; Visit Provider Internal Medicine Cardiovascular Disease
DX: R07.9 Chest pain, unspecified (principal); R93.1 Abnormal findings on diagnostic imaging of heart and coronary circulation
CPT/HCPCS: 36415; 78452; 93017; 96375; A9500; J2785

== ENCOUNTER → 2024-08-24 09:19 | Outpatient (BNVA) | payer MEDICARE, MEDICAID, SELFPAY ==
[2020-12-29 14:35] VITALS: BP 114/59; BMI 47.5
== END ==
PROVIDERS: PCP Registered Nurse; Visit Provider Nurse Practitioner Family
DX: R07.9 Chest pain, unspecified (principal); R94.39 Abnormal result of other cardiovascular function study; Z82.49 Family history of ischemic heart disease and other diseases of the circulatory system
CPT/HCPCS: 99214

== ENCOUNTER → 2024-08-30 14:40 | Outpatient (BNVA) | payer MEDICARE, SELFPAY ==
[2020-12-29 14:35] VITALS: BP 114/59; BMI 47.5
== END ==
PROVIDERS: PCP Registered Nurse; Visit Provider Internal Medicine Cardiovascular Disease
DX: R07.9 Chest pain, unspecified (principal)
CPT/HCPCS: 93005

== ENCOUNTER → 2024-10-05 11:03 | Outpatient (BNVA) | payer MEDICARE, MEDICAID, SELFPAY ==
[2020-12-29 14:35] VITALS: BP 114/59; BMI 47.5
== END ==
PROVIDERS: PCP Registered Nurse; Visit Provider Nurse Practitioner
DX: M17.11 Unilateral primary osteoarthritis, right knee (principal); Z68.43 Body mass index [BMI] 50.0-59.9, adult
CPT/HCPCS: 20610; J1100; J2795; J3301; J9999

== ENCOUNTER → 2025-01-04 08:36 | Outpatient (BNVA) | payer OTHER, MEDICAID, SELFPAY ==
[2020-12-29 14:35] VITALS: BP 114/59; BMI 47.5
== END ==
PROVIDERS: PCP Registered Nurse; Visit Provider Nurse Practitioner
DX: M17.11 Unilateral primary osteoarthritis, right knee (principal)
CPT/HCPCS: 20610; J1100; J2795; J3301; J9999

== ENCOUNTER → 2025-01-07 12:03 | Outpatient (BNVA) | payer OTHER, MEDICAID, SELFPAY ==
[2020-12-29 14:35] VITALS: BP 114/59; BMI 47.5
== END ==
PROVIDERS: PCP Registered Nurse; Visit Provider Nurse Practitioner
DX: G56.02 Carpal tunnel syndrome, left upper limb (principal)
CPT/HCPCS: 36415; 80053; 81001; 85025; 99214

== ENCOUNTER 2025-01-08 15:03 | Day surgery (SDC) | payer OTHER, MEDICAID, SELFPAY ==
[2020-12-29 14:35] VITALS: BP 114/59; BMI 47.5
[2025-01-08] VITALS (9 sets, daily range): BP systolic 103–125; BP diastolic 64–94; PULSE 67–77; RESP 16–17; TEMP 36.2–36.5; O2SAT 91–100; BMI 54.9
[2025-01-08] MEDS: acetaminophen 1,000 MG/100 ML PIGGYBACK 400 MG IV (15:44)
--- NOTE | 2025-01-08 15:55 | P.HPUD_ITS ---
Surgery/Procedure H&P Update DATE OF PROCEDURE: January 08, 2025 DATE H&P PERFORMED: 01/07/25 H&P UPDATE INFORMATION: I have reviewed H&P completed within last 30 days, I have examined patient prior to procedure, No changes to prior documentation, H&P is in [facility] EMR on date indicated and Risks and benefits of the procedure reviewed PLANNED PROCEDURE: Operation Date: 01/08/25 16:45 Proposed Procedures p Carpal Tunnel Release(Left) - Tanisha Villasenor MD Related Problem List Diagnoses 1. Carpal tunnel syndrome, left: 2. Ulnar neuropathy at elbow of left upper extremity:
--- NOTE | 2025-01-08 16:01 | ANES.PREANE2 ---
Pre-Anesthetic Assessment Height/Weight: Height 1.65 m Weight 149.685 kg Temp Pulse Resp BP Pulse Ox O2 Del Method 97.6 F 77 17 117/84 95 Room Air 01/08/25 15:01/08/25 15:01/08/25 15:01/08/25 15:01/08/25 15:01/08/25 15:27 Operation Date: 01/08/25 16:45 Proposed Procedures p Carpal Tunnel Release(Left) - Tanisha Villasenor MD Familial anesthetic complications: None Was Beta Hector taken within 24 hours: N/A Was Clonidine taken within 24 hours: N/A Last intake: Intake Last Liquid Date 01/07/25 Last Liquid Time 23:58 Last Solid Date 01/07/25 Last Solid Time 23:58 Social No alcohol and No tobacco Exam alert, oriented x 3, clear to auscultation bilaterally and regular rate & rhythm Airway Mallampati: Class III Chronic Renal Insufficiency GI Gastroesophageal Reflux Disease Metabolic Morbid Obesity and Thyroid Disease PCOS Anesthetic Plan ASA status: 3 Anesthesia: General Risk of > 500 ml blood loss (7ml/kg in children): No Medications/Allergies Home Medications ?Medication ?Instructions ?Recorded ?Confirmed ?Last Taken ?Type medroxyprogesterone 10 mg tablet 10 mg PO DAILY 10/25/19 01/07/25 01/07/25 History spironolactone 25 mg tablet 50 mg PO DAILY 12/20/19 01/07/25 01/07/25 History hydrocortisone 1 % lotion 1 applic topical BID PRN Rash 01/16/20 01/07/25 Unknown History (Cortisone (hydrocortisone)) L-Theanine 100 mg PO DAILY PRN Anxiety 08/24/21 01/07/25 Unknown History Womens Daily Vitamins w/Iron 1 tab PO DAILY 08/24/21 01/07/25 08/09/24 History ascorbic acid (vitamin C) 500 mg 500 mg PO DAILY 08/24/21 01/07/25 Unknown History capsule chromium 200 mcg-brindal issa 500 1 tab PO TID 08/24/21 01/07/25 01/02/25 History mg tablet (Garcinia Cambogia) cranberry 500 mg capsule 500 mg PO DAILY PRN uti 08/24/21 01/07/25 12/31/24 History fluticasone propionate 50 1 spray intranasal DAILY PRN 08/24/21 01/07/25 Unknown History mcg/actuation nasal Allergy Symptoms spray,suspension guaifenesin 600 mg tablet, 600 mg PO DAILY PRN Congestion 08/24/21 01/07/25 11/15/23 History extended release 12 hr (Mucinex) ipratropium bromide 21 mcg (0.03 2 spray intranasal BID 08/24/21 01/07/25 11/15/23 History %) nasal spray nystatin 100,000 unit/gram topical 1 applic topical DAILY 08/24/21 01/07/25 01/07/25 History ointment melatonin 10 mg-lemon balm leaf 1 tab PO BEDTIME PRN Sleep 12/29/21 01/07/25 01/07/25 History extract 1 mg tablet cetirizine 10 mg capsule (Zyrtec) 10 mg PO DAILY PRN Allergy Symptoms 09/27/23 01/07/25 01/07/25 History diclofenac sodium 1 % topical gel 4 g topical QID #100 grams 10/10/23 01/07/25 11/13/23 Rx (Voltaren Arthritis Pain) polyethylene glycol 3350 17 gram 17 g PO .prn 01/05/24 01/07/25 Unknown History oral powder packet bumetanide 0.5 mg tablet 0.5 mg PO DAILY 01/09/24 01/07/25 Unknown History meloxicam 7.5 mg tablet 7.5 mg PO DAILY #90 tabs 03/30/24 01/07/25 01/06/25 Rx triamcinolone acetonide 0.1 % 1 applic topical DAILY #30 grams 03/30/24 01/07/25 Unknown Rx topical cream famotidine 10 mg tablet 10 mg PO DAILY 05/28/24 01/07/25 01/07/25 History tizanidine 4 mg capsule 4 mg PO Q8H PRN Anxiety 07/02/24 01/07/25 01/06/25 History nitroglycerin 0.4 mg sublingual 0.4 mg sublingual Q5M PRN chest 07/25/24 01/07/25 Unknown Rx tablet pain #20 tabs rimegepant 75 mg disintegrating 75 mg PO .Every Two Days 08/30/24 01/08/25 01/08/25 History tablet (Nurtec ODT) alprazolam 0.25 mg tablet 0.25 mg PO BID PRN anxiety #45 tabs 12/03/24 01/08/25 01/08/25 Rx hydroxyzine HCl 50 mg tablet 50 mg PO BID PRN anxiety #45 tabs 12/10/24 01/07/25 01/07/25 Rx levothyroxine 200 mcg capsule 200 mcg PO DAILY 12/10/24 01/08/25 01/08/25 History paroxetine HCl 30 mg tablet 30 mg PO DAILY #30 tabs 12/10/24 01/08/25 01/08/25 Rx trazodone 100 mg tablet See Rx Instructions PO .q hs PRN 12/10/24 01/07/25 01/06/25 Rx insomnia #60 tabs Allergies Allergy/AdvReac Type Severity Reaction Status Date / Time sunflower seed Allergy Intermediate ALGY-Difficulty Verified 01/08/25 15:19 Breathing phentermine Allergy Mild ADR-Anxiety Verified 01/08/25 15:19 semaglutide (From Ozempic) Allergy Unknown blood Verified 01/08/25 15:19 sugar issues Sulfa (Sulfonamide Allergy Unknown Unknown Verified 01/08/25 15:19 Antibiotics) Penicillins Allergy Unknown Verified 01/08/25 15:19 isosorbide AdvReac Intermediate Headache Verified 01/08/25 15:19 Current Medications Generic Name Dose Route Start Last Admin Trade Name Freq PRN Reason Stop Dose Admin Sodium Chloride 1,000 mls @ 30 mls/hr 01/08/25 15:15 01/08/25 15:44 Sodium Chloride 0.9% IV 01/09/25 15:14 30 mls/hr .Q24H ELIAS Administration PFS Anesthesia Medical History (Updated 01/08/25 @ 15:56 by Tanisha Villasenor MD) Carpal tunnel syndrome, left Chest pain Bilateral hand pain Adult BMI 50.0-59.9 kg/sq m Osteoarthritis of right knee PCOS (polycystic ovarian syndrome) Psychiatric care Chronic generalized abdominal pain Morbid obesity GERD without esophagitis Seasonal allergies Hypertension Hypothyroid PCOS (polycystic ovarian syndrome) IBS (irritable bowel syndrome) Raynauds disease Osteoarthritis GERD (gastroesophageal reflux disease) Fibromyalgia 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 Major depressive disorder, recurrent, moderate Generalized anxiety disorder Surgical History S/P carpal tunnel release Date of procedure: November 17, 2023 Pre-op diagnosis: Right carpal tunnel syndrome Procedure done: Right carpal tunnel release Surgeon: Tanisha Villasenor MD History of colonoscopy History of esophagogastroduodenoscopy (EGD) Family History Mother Diabetes Heart disease Uterine cancer, Onset Age: 60 Grandmother Diabetes Heart disease Father Heart disease Hypertension Grandfather Diabetes Maternal Heart disease Maternal Brother Diabetes Family/Other Stroke Maternal Great Grandmother Denies family history of Colon cancer Ovarian cancer Breast cancer Bleeding disorder Thyroid disease Social History Smoking and tobacco/nicotine status: never used tobacco/nicotine Second hand smoke exposure: Yes Alcohol intake: never Substance/Drug Use: never Additional social history: - Tobacco use: Never Alcohol use: Never Drug use: Never Data Anesthesia Cardiac Studies: Echocardiogram 02/07/24 Sestamibi Stress Test (Cardiology) 08/07/24
[2025-01-08] MEDS: ceFAZolin 3,000 MG in sodium chloride 0.9% (100 ml) 100 ML 200 MG IV (16:23)
[2025-01-08] MEDS: BUPivacaine 0.5% INJ 30 mL XX (17:50)
--- NOTE | 2025-01-08 18:24 | P.OP_ITS ---
Operative Report Date of procedure: January 08, 2025 Pre-op diagnosis: Left carpal tunnel syndrome Post-op diagnosis: Left carpal tunnel syndrome Post-op findings: Severe compression across the carpal canal both at the level of the wrist and distally in the hand with compression across the nerve and hourglass deformity Procedure done: Left carpal tunnel release Implants: None Specimens removed/disposition: None Pathology: None Surgeon: Tanisha Villasenor MD Beauty Shop Manager: None Anesthesia: General (LMA, ASA 3) Estimated blood loss (mL): 5 Tourniquet time (min): 23 (At 250 mmHg) IV fluids (mL): 600 Urine output (mL): 0 (No Lal) Complications: None Findings: As noted above Condition: stable Disposition: PACU (Then return to same-day surgery for discharge to home) Brief History: This 44-year-old woman presents to the to the office complaining of left carpal tunnel syndrome. Previously, she underwent right carpal tunnel release and this was quite successful for her. The patient has received cardiac clearance prior to the surgical procedure. The nerve conduction studies confirm moderate left median neuropathy at the wrist consistent with carpal tunnel syndrome. Therefore, discussion was undertaken in the office. Risks and complications were discussed with her. Consents were signed. She was given further opportunity for questions on the day of surgery. Procedure: The patient was brought to the operating theater. The patient had general anesthesia per LMA, ASA 3 which was well-tolerated. The tourniquet was elevated to 250 mmHg for a total tourniquet time of 23 minutes. The patient was also given Ancef 3 g preoperatively. The arm was then prepped and draped with DuraPrep in usual fashion with the arm draped free. A surgical pause was performed. At the time, the surgical pause, we confirmed the site and side of surgery. We also confirmed the patient's identity, as well as appropriate and timely administration of preoperative antibiotics and preoperative surgical markings. An incision was then made along the thenar crease. The incision crossed the wrist joint in a curvilinear fashion. Dissection continued through skin and soft tissues using a scalpel. The palmaris longus was identified along with the transverse carpal ligament. Each of these was released carefully to avoid injury to the median nerve. We were able to dissect gently into the carpal canal which was noted to be quite tight with significant compression across the median nerve. The nerve was visualized and was an hourglass shape. The canal was subsequently palpated to assure there was no bony encroachment upon the canal. There was a quite thickened fibrous tissue within the canal, and this was opened longitudinally as well. The canal was then palpated distally and proximally to assure that my small finger was passed easily without impingement. Finding this to be so, attention was directed to closure. The wound was irrigated with ropivacaine plain. It was then closed with 3-0 nylon in an interrupted mattress fashion. Sterile dressing was then placed consisting of Dermabond, OpSite, fluffed fluffs, sterile soft roll, and an William wrap. The tourniquet was released after 23 minutes. There were no complications. There were no specimens. The procedure was well tolerated. Plan is the patient will be discharged home. Related Problem List Diagnoses 1. Carpal tunnel syndrome, left:
[2025-01-09 07:44] LABS: OR HCG Qualitative Urine Negative (Negative)
== END 2025-01-08 19:00 | disposition home or self-care (01) ==
PROVIDERS: Anesthesiology; PCP Registered Nurse; Visit Provider Specialist
PROC: (CPT 64721; principal; 2025-01-08 16:35)
DX: G56.02 Carpal tunnel syndrome, left upper limb (principal); K21.9 Gastro-esophageal reflux disease without esophagitis; E66.01 Morbid (severe) obesity due to excess calories; Z68.43 Body mass index [BMI] 50.0-59.9, adult; F32.9 Major depressive disorder, single episode, unspecified; E03.9 Hypothyroidism, unspecified; I10 Essential (primary) hypertension
CPT/HCPCS: 64721; 81025; J0131; J0690; J1100; J2250; J2405; J2704; J3010; J3490; J7030; J9999

== ENCOUNTER → 2025-01-21 13:11 | Outpatient (BNVA) | payer OTHER, MEDICAID, SELFPAY ==
[2020-12-29 14:35] VITALS: BP 114/59; BMI 47.5
== END ==
PROVIDERS: PCP Registered Nurse; Visit Provider Nurse Practitioner
DX: Z98.890 Other specified postprocedural states (principal)
CPT/HCPCS: 99024

== ENCOUNTER → 2025-02-25 14:20 | Outpatient (BNVA) | payer MEDICARE, MEDICAID, SELFPAY ==
[2020-12-29 14:35] VITALS: BP 114/59; BMI 47.5
== END ==
PROVIDERS: PCP Registered Nurse; Visit Provider Nurse Practitioner
DX: M79.642 Pain in left hand (principal); Z98.890 Other specified postprocedural states
CPT/HCPCS: 73130; 99024; 99213

== ENCOUNTER → 2025-03-21 11:18 | Outpatient (BNVA) | payer MEDICARE, MEDICAID, SELFPAY ==
[2020-12-29 14:35] VITALS: BP 114/59; BMI 47.5
== END ==
PROVIDERS: PCP Registered Nurse; Visit Provider Podiatrist Foot & Ankle Surgery
DX: M72.2 Plantar fascial fibromatosis (principal)
CPT/HCPCS: 73630; 99203

== ENCOUNTER → 2025-04-05 11:05 | Outpatient (BNVA) | payer MEDICARE, MEDICAID, SELFPAY ==
[2020-12-29 14:35] VITALS: BP 114/59; BMI 47.5
== END ==
PROVIDERS: PCP Registered Nurse; Visit Provider Nurse Practitioner
DX: M17.11 Unilateral primary osteoarthritis, right knee (principal); Z68.43 Body mass index [BMI] 50.0-59.9, adult
CPT/HCPCS: 20610; 73560; 73565; 99214; J1100; J2795; J3301; J9999